=== PATIENT | male | born 1950 | race Caucasian/White ===

== ENCOUNTER 2018-08-09 12:08 | Outpatient (CLI) | payer MEDICARE | END 2018-08-09 12:09 | disposition critical access hospital (66) | LOC: EMS 12:08 | PROVIDERS: ATTEND Surgery | DX: R19.7 Diarrhea, unspecified (principal); R53.1 Weakness | CPT/HCPCS: A0425; A0429 ==

== ENCOUNTER 2018-08-09 12:20 | Inpatient (IN) | payer MEDICARE ==
--- NOTE | 2018-08-09 13:01 | ED Physician Documentation ---
PD HPI ABD PAIN - Stated complaint Stated Complaint: WEAKNESS, DIARRHEA, CONFUSED - Chief complaint Chief Complaint: Abd Pain - History obtained from History obtained from: Patient - History of Present Illness Timing - onset: Other (68yo male with sz d/o, DM with 3 days diarrhea, now weak with syncopal episodes. No blood in BM. Poor appetite. No abd pain, fevers, chills. No recent abx. State the syncopal episodes are following the diarrhea. He usually has the diarrhea and then goes and lays down in bed and either passes out or falls asleep. There is been no injury and he is never had one standing up. He denies any recent seizures, his last seizure was years ago.) Review of Systems Ten Systems: 10 systems reviewed and negative Constitutional: reports: Fatigue. denies: Fever, Chills Cardiac: denies: Chest pain / pressure, Palpitations Respiratory: denies: Dyspnea, Cough GI: reports: Diarrhea. denies: Abdominal Pain, Nausea, Vomiting PD PAST MEDICAL HISTORY - Past Medical History Cardiovascular: None Respiratory: None Neuro: Seizure disorder Endocrine/Autoimmune: None GI: None : None HEENT: None Psych: None Musculoskeletal: None Derm: None - Past Surgical History Past Surgical History: Yes General: Gastric surgery - Social History Does the pt smoke?: No Smoking Status: Never smoker Does the pt have substance abuse?: No - Family History Family history: reports: Non contributory PD ED PE NORMAL - Vitals Vital signs reviewed: Yes - General General: Alert and oriented X 3, No acute distress - HEENT HEENT: PERRL, EOMI - Neck Neck: Supple, no meningeal sign, No bony TTP - Cardiac Cardiac: RRR, No murmur - Respiratory Respiratory: No respiratory distress, Clear bilaterally - Abdomen Abdomen: Normal bowel sounds, Soft, Non tender - Back Back: No CVA TTP, No spinal TTP - Derm Derm: Normal color, Warm and dry - Extremities Extremities: No edema, No calf tenderness / cord - Neuro Neuro: Alert and oriented X 3, Normal speech Results - Vitals Vitals: Vital Signs - 24 hr 08/09/18 08/09/18 08/09/18 12:29 13:52 15:10 Temperature 36.2 C L Heart Rate 107 H 111 H 112 H Respiratory 21 12 21 Rate Blood Pressure 164/91 H 182/95 H 182/90 H O2 Saturation 99 99 99 06/28/19 06/28/19 16:14 16:49 Temperature 37 C Heart Rate 99 104 H Respiratory 16 21 Rate Blood Pressure 152/94 H 172/111 H O2 Saturation 98 97 Oxygen O2 Source Room air - EKG (time done) 1331 Rate: Rate (enter#) (101) Rhythm: Sinus tachycardia [place]: Normal Intervals: Normal MI QRS: Normal Ischemia: Non specific changes Compare to prior EKG: Old EKG unavailable Computer interpretation: Agree with computer - Labs Labs: Laboratory Tests 08/09/18 08/09/18 08/09/18 13:03 13:03 15:43 WBC 6.0 RBC 4.37 L Hgb 14.9 Hct 41.0 L MCV 93.8 MCH 34.1 H MCHC 36.3 H RDW 13.3 Plt Count 265 MPV 10.5 Neut # (Auto) 4.4 Lymph # (Auto) 0.8 L [place] # (Auto) 0.6 Eos # (Auto) 0.1 Baso # (Auto) 0.1 Absolute Nucleated RBC 0.00 Nucleated RBC % 0.0 VBG pH VBG pCO2 VBG pO2 VBG HCO3 VBG Total CO2 VBG O2 Saturation VBG Base Excess Sodium 132 L Potassium 2.7 L Chloride 98 L Carbon Dioxide 19 L Anion Gap 15.0 H BUN 16 Creatinine 1.0 Estimated GFR (MDRD) 75 L Glucose 147 H Lactic Acid 0.9 Calcium 9.7 Total Bilirubin 0.9 AST 41 ALT 35 Alkaline Phosphatase 72 Total Protein 7.3 Albumin 4.3 Globulin 3.0 Albumin/Globulin Ratio 1.4 Lipase 21 L Urine Color Urine Clarity Urine pH Ur Specific [place] Urine Protein Urine Glucose (UA) Urine Ketones Urine Occult Blood Urine Nitrite Urine Bilirubin Urine Urobilinogen Ur Leukocyte Esterase Ur Microscopic Review Urine Culture Comments 08/09/18 08/09/18 15:43 16:40 WBC RBC Hgb Hct MCV MCH MCHC RDW Plt Count MPV Neut # (Auto) Lymph # (Auto) [place] # (Auto) Eos # (Auto) Baso # (Auto) Absolute Nucleated RBC Nucleated RBC % VBG pH 7.406 VBG pCO2 30.9 L VBG pO2 49.9 H VBG HCO3 19.0 L VBG Total CO2 19.9 L VBG O2 Saturation 88.1 H VBG Base Excess -4.5 L Sodium Potassium Chloride Carbon Dioxide Anion Gap BUN Creatinine Estimated GFR (MDRD) Glucose Lactic Acid Calcium Total Bilirubin AST ALT Alkaline Phosphatase Total Protein Albumin Globulin Albumin/Globulin Ratio Lipase Urine Color YELLOW Urine Clarity CLEAR Urine pH 6.0 Ur Specific [place] 1.010 Urine Protein NEGATIVE Urine Glucose (UA) NEGATIVE Urine Ketones 15 H Urine Occult Blood NEGATIVE Urine Nitrite NEGATIVE Urine Bilirubin NEGATIVE Urine Urobilinogen 0.2 (NORMAL) Ur Leukocyte Esterase NEGATIVE Ur Microscopic Review NOT INDICATED Urine Culture Comments NOT INDICATED - Rads (name of study) CT A/P Radiology: EMP read contemporaneously (Possible cholecystitis noting that this does not fit the clinical picture which is that of diarrhea that is painless and weakness. There is no right upper quadrant pain or tenderness.) PD MEDICAL DECISION MAKING - ED course ED course: 68-year-old gentleman presents with diarrhea of a few days duration but is only had 4 episodes. Its associated with weakness and passing out. He denies any recent seizure activity and is very vague about the passing out. He was never injured and he says it always happens in bed, frankly it almost sounds like he goes to sleep after each episode of diarrhea. He doubts he will be able to produce any diarrhea here. He did not lacks any abdominal tenderness or fever. No recent antibiotics. No recent travel or sick contacts. He is modestly tachycardic and we are treating him with IV fluids. Lab work shows mild acidosis and moderate hypokalemia. He was given IV and oral potassium. After these treatments he was still too dizzy to get up or walk. He was administered a second liter of fluids and expanded lab work including a lactate and a venous gas and a CT of the abdomen and pelvis were ordered. Spoke with Dr Tovar for obs at 1744 Departure - Departure Disposition: ED Place in Observation Clinical Impression: Diarrhea Qualifiers: Diarrhea type: presumed infectious Qualified Code(s): R19.7 - Diarrhea, unspecified Syncope Qualifiers: Syncope type: unspecified Qualified Code(s): R55 - Syncope and collapse Condition: Fair Record reviewed to determine appropriate education?: Yes
[2018-08-09] MEDS ORDERED: SODIUM CHLORIDE 0.9% 1,000 ML IV ONE (13:04)
[2018-08-09 13:09] LABS: BASOPHILS # (AUTO) 0.1 10^3/uL (0.0-0.1); BASOPHILS % (AUTO) 0.8 %; EOSINOPHILS # (AUTO) 0.1 10^3/uL (0.0-0.7); EOSINOPHILS % (AUTO) 1.2 %; HGB - HEMOGLOBIN 14.9 g/dL (14.0-18.0); LYMPHOCYTES # (AUTO) 0.8 10^3/uL (1.5-3.5); LYMPHOCYTES % (AUTO) 13.1 %; MEAN CORPUSCULAR HEMOGLOBIN 34.1 pg (27.0-31.0); MEAN CORPUSCULAR HGB CONC 36.3 g/dL (32.0-36.0); MEAN CORPUSCULAR VOLUME 93.8 fL (80.0-94.0); MEAN PLATELET VOLUME 10.5 fL (7.4-11.4); MONOCYTES # (AUTO) 0.6 10^3/uL (0.0-1.0); MONOCYTES % (AUTO) 9.7 %; NEUTROPHILS # (AUTO) 4.4 10^3/uL (1.5-6.6); NEUTROPHILS % (AUTO) 74.7 %; PLT - PLATELET COUNT 265 10^3/uL (130-450); RED BLOOD COUNT 4.37 10^6/uL (4.70-6.10); RED CELL DISTRIBUTION WIDTH 13.3 % (12.0-15.0)
[2018-08-09 13:21] LABS: ALBUMIN 4.3 g/dL (3.2-5.5); ALBUMIN/GLOBULIN RATIO 1.4 (1.0-2.2); BILIRUBIN,TOTAL 0.9 mg/dL (0.2-1.0); CALCIUM 9.7 mg/dL (8.5-10.3); TOTAL PROTEIN 7.3 g/dL (6.7-8.2)
[2018-08-09] MEDS ORDERED: POTASSIUM CHLOR 10 MEQ/100 ML 10 MEQ/100 ML BAG IV ONE (13:27)
[2018-08-09] MEDS ORDERED: POTASSIUM CHLORIDE 20 MEQ TABLET PO STA (13:27)
[2018-08-09] MEDS ORDERED: LACTATED RINGERS 1,000 ML IV STA (15:16)
[2018-08-09] MEDS ORDERED: IOVERSOL 320 100 ML VIAL IVP ONE ×2 (15:32→16:05)
[2018-08-09 15:59] LABS: VBG PCO2 30.9 mmHg (41-51); VBG PH 7.406 (7.31-7.41); VBG PO2 49.9 mmHg (25-47); VBG TOTAL CO2 19.9 mmol/L (24-29)
[2018-08-09 16:00] LABS: VBG BASE EXCESS -4.5 mmol/L (-2 - +2)
--- NOTE | 2018-08-09 16:34 | CT Report ---
Reason: IV only, diarrhea Procedure Date: 08/09/2018 Accession Number: [id number] / [id number] Procedure: CT - Abdomen/Pelvis W CPT Code: FULL RESULT: EXAM: CT ABDOMEN AND PELVIS EXAM DATE: 08/09/2018 03:59 PM. CLINICAL HISTORY: IV only, diarrhea. COMPARISONS: None. TECHNIQUE: Routine helical CT imaging was performed through the abdomen and pelvis. IV contrast: 100 mL of Optiray 320. Enteric contrast: No. Reconstructions: Coronal and sagittal. In accordance with CT protocol optimization, one or more of the following dose reduction techniques were utilized for this exam: automated exposure control, adjustment of mA and/or KV based on patient size, or use of iterative reconstructive technique. FINDINGS: Lung Bases: Unremarkable. Liver: Normal. No masses. Gallbladder/Bile Ducts: Gallbladder contains calculi, demonstrates surrounding fat stranding and mild wall thickening. Spleen: Normal. Pancreas: Atrophic. Adrenal Glands: Normal. Kidneys: Symmetric mild perinephric fat stranding without hydronephrosis. Peritoneal Cavity/Bowel: The patient is status post partial colectomy. There is a bowel-containing ventral hernia. There is no bowel obstruction. There is no free fluid or free air. There are diffuse prominent peritoneal and retroperitoneal lymph nodes which do not meet size criteria. Pelvic Organs: Enlarged prostate lifting the base of the bladder. Vasculature: Mild to moderate atherosclerosis without abdominal aortic aneurysm. Bones: No aggressive osseous lesions. Other: None. IMPRESSION: Mild pericholecystic fat stranding and gallbladder wall thickening in the setting of cholelithiasis. If clinically indicated, consider workup for acute cholecystitis versus direct clinical management with information at hand. SORIN The call report notification system was initiated by Dr. Surinder Maldonado at 04:32 PM on 08/09/2018. ADDENDUM: 08/09/18 16:39 The above call report findings were discussed with Kin Teresa by Dr. Surinder Maldonado at 04:30 PM on 08/09/2018.
[2018-08-09 16:57] LABS: BILIRUBIN,URINE NEGATIVE (NEGATIVE); GLUCOSE, URINE (UA) NEGATIVE (NEGATIVE); KETONES,URINE (UA) 15 mg/dL (NEGATIVE); LEUKOCYTE ESTERASE, URINE NEGATIVE (NEGATIVE); NITRITE,URINE NEGATIVE (NEGATIVE); OCCULT BLOOD,URINE NEGATIVE (NEGATIVE); PROTEIN,URINE NEGATIVE (NEGATIVE); UROBILINOGEN,URINE 0.2 (NORMAL) E.U./dL (NORMAL)
[2018-08-09 17:05] LABS: CLARITY,URINE CLEAR (CLEAR)
[2018-08-09] MEDS ORDERED: ONDANSETRON 4 MG/2 ML VIAL IVP PRN (17:52)
[2018-08-09] MEDS ORDERED: SODIUM CHLORIDE FLUSH 0.9% 10 ML SYRINGE IVP PRN (17:52)
[2018-08-09] MEDS ORDERED: ONDANSETRON ODT 4 MG TABLET TL PRN (17:52)
[2018-08-09] MEDS: NS W/20 MEQ KCL 1,000 ML IV SCH (20:18)
[2018-08-09 20:38] LABS: MUDS CUTOFF CONCENTRATIONS CUTOFF CONC BELOW:
[2018-08-09 20:50] LABS: AMPHETAMINE SCREEN,URINE NEGATIVE (NEGATIVE); BENZODIAZEPINES SCREEN, URINE NEGATIVE (NEGATIVE); COCAINE SCREEN URINE NEGATIVE (NEGATIVE); METHADONE SCREEN, URINE NEGATIVE (NEGATIVE); METHAMPHETAMINES SCREEN, URINE NEGATIVE (NEGATIVE); OPIATE SCREEN, URINE NEGATIVE (NEGATIVE); OXYCODONE SCREEN, URINE NEGATIVE (NEGATIVE); PROPOXYPHENE SCREEN, URINE NEGATIVE (NEGATIVE); TRICYCLIC ANTIDEPRESSANT,URINE NEGATIVE (NEGATIVE)
[2018-08-09] MEDS: POTASSIUM CHLOR 10 MEQ/100 ML 10 MEQ/100 ML BAG IV SCH ×2 (22:25→22:50)
--- NOTE | 2018-08-09 22:57 | CT Report ---
Reason: syncope x 1 d, halluncination x 3 month Procedure Date: 08/09/2018 Accession Number: [id number] / [id number] Procedure: CT - HEAD WO CPT Code: FULL RESULT: EXAM: CT HEAD EXAM DATE: 08/09/2018 10:27 PM. CLINICAL HISTORY: Syncope x 1 d, hallucination x 3 month. COMPARISON: None. TECHNIQUE: Multiaxial CT images were obtained from the foramen magnum to the vertex. Reformats: Sagittal and coronal. IV contrast: None. In accordance with CT protocol optimization, one or more of the following dose reduction techniques were utilized for this exam: automated exposure control, adjustment of mA and/or KV based on patient size, or use of iterative reconstructive technique. FINDINGS: Parenchyma: No intraparenchymal hemorrhage. No evidence of mass, midline shift, or CT findings of infarction. Tomas-white differentiation is distinct. There is mild chronic microvascular change in the deep white matter. Extraaxial Spaces: Mild to moderate age-related generalized cerebral volume loss. No subdural or epidural collections identified. Ventricles: Normal. No hydrocephalus. Sinuses and Orbits: Imaged paranasal sinuses, orbits, and mastoids show no significant abnormality. Bones: No evidence of fracture or calvarial defect. Other: None. IMPRESSION: 1. No acute intracranial abnormality. 2. No intracranial mass lesion, mass-effect, or hydrocephalus. 3. Age-related generalized cerebral volume loss and chronic microvascular change. RADIA
--- NOTE | 2018-08-10 00:41 | HISTORY & PHYSICAL EXAMINATION ---
DATE OF SERVICE: 08/09/2018 Physician: Margarita Tovar MD PRIMARY CARE PROVIDER: Unknown at this time, the patient is a poor historian. ADMITTING PROVIDER: Margarita Tovar MD. CHIEF COMPLAINT: Syncope while lying in bed. HISTORY OF PRESENT ILLNESS: This gentleman is a poor historian. He has a flight of ideas, perseveration, and [place] so it is difficult to establish what his baseline is. He even states that he has changed over the last few months. He cannot put his finger on it, but he cannot think straight, and he is starting to confuse reality with hallucinations or dreams. He gives me an example of having a seizure disorder with a brain lesion. He thinks. Somehow, he feels like he is supposed to be getting infusions for this brain lesion and he gets up in the morning and he walks to the bus stop. While at the bus stop, he starts to realize that he should not be there and he really does not have an appointment, so he walked back home to his mother's house. He usually lives in [place], and he comes periodically to the [place] to live with his mother to help take care of her since she had a stroke. This has been ongoing for about five years of him taking care of her. The confusion of reality and hallucinations has been happening for about three or four months. He says he does not do any recreational substances. He also states that he drinks one drink of wine a day, but has not drunk in about three or four weeks. The glass of wine is described about 8 ounces of red wine from a dispenser that is shaped like a [email or web address] car, and that 8 ounces is filled with ice and he drinks that daily. In the last few days, he has developed diarrhea. It is not with a lot of frequency, but large amounts of watery stool will be produced. He does not recall any new foods. Denies that he has been eating out. His mom was found down today in the bathroom. She had been there overnight. He does not know how long she lay there, and he does not even remember if he heard her cry out. Nevertheless, when she was found this morning, EMS was called and she has been brought in for rhabdomyolysis, but she herself does not have diarrhea. He denies blood in his stool. Denies abdominal pain. Today, he started passing out. Passing out as he was lying in bed. He describes walking to the bathroom, coming back to the bed and by the time he gets to the bed, he is shaky, lightheaded and feels incredibly nauseated. Sometimes he is sitting at the side of the bed with these feelings and the next thing he knows he is waking up lying slumped over on the pillows. A couple of times he has actually been lying flat on the bed when he felt the nausea overcome him, and then unconsciousness and then "waking up." He presented to this emergency room with this history. He was seen by Dr. Teresa, where he was mildly hypothermic at 36.2, heart rate 107, blood pressure 164/91, respirations 21 and 99% on room air. His past medical history is that of intermittent diabetes, intermittently treated hypertension, and a duodenal bleed many years ago resulting in a long hospitalization with [facility] in [place]. Dr. Teresa's examination had him alert and oriented with no acute distress. Normal neurologic exam, clear lungs and a regular rate and rhythm. He was given IV fluids over the course of two hours, with oral potassium. With this, he was still too dizzy to get up and walk. Dr. Teresa then expanded his workup to include a lactic acid and a venous gas and CT abdomen and pelvis. He has right upper quadrant stranding indicating possible cholecystitis, but the patient has absolutely no right upper quadrant abdominal pain. His sodium is 132, potassium 2.7 and that has been supplemented. Lactic acid is 0.9. Anion gap is mildly elevated at 15. As such, the patient was brought in for possible dehydration with syncope secondary to diarrhea. PAST MEDICAL HISTORY: Past medical history, again, very difficult to obtain in this difficult historian, who cannot focus, and an answer to a question will result in a long winded explanation that has nothing to do with the questions asked. 1. Duodenal bleed resulting in hemorrhage, emergent surgery, and a prolonged hospitalization at a [facility] facility in [place]. 2. Diabetes mellitus "off and on." 3. Hypertension "off and on." 4. Appendectomy in the past. 5. History of esophageal strictures with subsequent dilations periodically. One dilation resulted in esophageal perforation and an emergency thoracotomy. 6. Seizure disorder with "a brain MRI lesion in the right side of his brain." 7. Unknown cognitive deficit. He denies history of mental illness or psychiatric disorder. ALLERGIES: NO KNOWN DRUG ALLERGIES. He states that there is a bottle or many bottles at home, left on the counter after EMS picked him up, but he is unaware of any medications that he takes. Ambulatory module filled by nursing in the ED is empty. SOCIAL HISTORY: He denies smoking. Never did. Alcohol use is an 8-ounce glass of wine a day, which he states he stopped three or four weeks ago for unknown reasons. He denies any use of heroin, cocaine, LSD, cannabis, methamphetamines. He has been and . 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 Started moving back and forth between [place] and [facility] in an effort to take care of his mom who had a stroke. FAMILY HISTORY 1. Dad is alive. He thinks he lives in [place], he is not sure, but he is not in contact with him. 2. Mom had a stroke and she is alive at 87. 3. Marielle is a sister and as far as he knows, she is healthy. 4. One son is healthy. REVIEW OF SYSTEMS GENERAL: Negative for unexpected weight changes, chills, fevers or sweats. HEENT: Severe cataracts, wears glasses for astigmatism, denies dysphagia, dysarthria,. Does have allergies, so he has quite a bit of nasal congestion at times and uses Afrin. PULMONARY: Denies coughing, wheezing, congestion, URI symptoms. CARDIOVASCULAR: Denies palpitations, murmurs, edema, orthopnea or change in cardiovascular endurance. GASTROINTESTINAL: Positive as above. He feels like he has been nauseated "forever." When I asked him to quantify that, he thinks back that he may be having daily nausea for unknown reasons for a few months now. He does not know if he has lost weight or not. GENITOURINARY: Nocturia, urgency, frequency, decreased stream, erectile dysfunction. JOINTS: Chronic low back pain. Hands and hips are stiff in the morning, but loosen up. He feels like his hands and feet are cold all the time. ENDOCRINE: Denies polyuria, polyphagia, polydipsia in hands and feet are cold all the time. PSYCHIATRIC: Denies history of previous psychiatric disorder. Seems to be endorsing hallucinations. Denies suicidal or homicidal ideation. 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 It is very hard for him to concentrate and to string together sentences and distinguish between reality and hallucinations. No focal deficits. No gait ataxia or falls. The syncope has only been today. PHYSICAL EXAMINATION VITAL SIGNS: On examination, he is seen in the emergency room. Temperature is 37, pulse of 104, blood pressure 172/111, respirations 21 and unlabored, and he is 97% on room air. GENERAL: He is lying comfortably in the ER gurney, alert, oriented to person, place and time. HEENT: Has him with muddy sclerae, pupils that are reactive, dry, dry oral mucosa. No facial asymmetry. Slightly hoarse voice. NECK: Supple with shotty adenopathy. No goiter or bruits. LUNGS: Clear to auscultation and percussion with no increased respiratory effort. HEART: PMI is normally placed with a heart thumping PMI and a regular rate and rhythm that is slightly tachycardic. No murmurs, rubs or gallops. ABDOMEN: Soft, nontender. Slightly hypoactive bowel sounds. No organomegaly. No femoral bruits. EXTREMITIES: Do show that he has very cold hands or feet, but there is no clubbing, cyanosis or edema. Good foot pulses and good radial pulse. NEUROLOGIC: He is alert and oriented to person, place and time. It is difficult for him to follow commands. For instance in checking extraocular movements and nystagmus, I have to repeat myself three times to finally get him to focus on my finger and allow me to do that part of the exam. Strength is intact in the upper and lower extremities; however, he is weak, can barely lift his legs off the bed. Reflex check induces clonus in the right knee and right ankle. Left leg is normal. At times, he has jerking movements, tremors of hands. Tongue is also with tremors as well. Cerebellar exam has some past pointing. LABORATORY DATA: White cell count is 6, hemoglobin 14.9, hematocrit 41, platelets 265. Sodium 132, potassium 2.7, chloride 98, carbon dioxide 19, anion gap 15, BUN 16, creatinine 1, glucose 147, lactic acid 0.9. Liver enzymes normal. Lipase 21. Venous blood gas is a pH of 7.4, pCO2 of 30, bicarbonate 19, base excess -4.5. Urinalysis is ketonuria, but is otherwise negative. ASSESSMENT/PLAN 1. Syncope. He seems to be describing orthostatic syncope in the face of someone who has been having diarrhea and decreased p.o. intake for the last few days. It is a very unusual description, and he also describes passing out in the supine position. On physical examination, I am not hearing any aortic stenosis murmur. Telemetry in the ER has him in a sinus rhythm that is tachycardic. There are no arrhythmias. He knows what a seizure disorder feels like and he says that these are not seizures. At this time, I am subscribing to the idea that this is orthostatic syncope from dehydration. PLAN: a. Observation status to hydrate and replace electrolytes. b. Attestation: The patient will be discharged within 96 hours. c. Monitor on telemetry for possible arrhythmia. 2. Diarrhea that appears to be secretory, acute. Send stool for Clostridium difficile and culture. Could he have alcohol abuse that he is not being upfront about and have diarrhea from alcohol abuse? In any case, it is causing significant electrolyte disturbance and dehydration and acidosis. We will treat with Lomotil p.r.n. and IV fluids. 3. Acute Dehydration with hyponatremia. Start IV normal saline. Encourage p.o. intake. Appears to have some type of enteritis or toxin induced diarrhea. 4. Acute Hypokalemia. Supplement IV since poor malabsorption at this time with his diarrhea. 5. Possible hallucinations,unknown duration, present on admission. When I put together a gentleman who is tremulous on physical exam, clonus, hypertensive, tachycardic, it appears to be that he is going through alcohol withdrawal, but he is adamant that he is not an alcohol abuser, and his MCV is normal with no anemia. CT of the abdomen was done and he does not have a fatty liver. As such, I may need to go beyond his diagnosis of possible alcohol abuse to something else to link together all of these symptomatologies. He is a poor historian, has cognitive deficits. Could he have a psychiatric disorder versus a new brain lesion? Could he be abusing a recreational substance other than alcohol? Plan: a. We will start brain CT tomorrow. b. Check for substance abuse through drug screen. c. Check alcohol level. d. See if he can improve enough tomorrow for me to get old records from his [facility] facility in [place]. 6. History of seizure disorder. Again, a vague history. He does not describe seizure medication. He says that sometimes they tell him that he has a seizure and sometimes not, but he also readily states that he imagines going to the bus stop to get infusions for this brain lesion causing seizures and then realizes that really did not happen. Again, we will try to obtain old records from [facility] tomorrow. 7. FULL CODE STATUS. 8. Deep venous thrombosis prophylaxis will be MARCUS bennett. 9. Medication Reconciliation needs to be completed. No record of meds done in the ER. I will have pharmacy per protocol attempt to do that in the am. TD: 08/09/2018 21:58 RINA
[2018-08-10] MEDS: POTASSIUM CHLOR 10 MEQ/100 ML 10 MEQ/100 ML BAG IV SCH ×5 (02:36→09:03)
[2018-08-10] MEDS: NS W/20 MEQ KCL 1,000 ML IV SCH (03:35)
[2018-08-10] MEDS: SODIUM CHLORIDE FLUSH 0.9% 10 ML SYRINGE IVP SCH ×3 (03:36→20:19)
[2018-08-10 04:45] LABS: ALBUMIN 3.7 g/dL (3.2-5.5); ALBUMIN/GLOBULIN RATIO 1.6 (1.0-2.2); CALCIUM 8.6 mg/dL (8.5-10.3); CREATININE 0.7 mg/dL (0.6-1.2)
[2018-08-10] MEDS: SODIUM CHLORIDE 0.9% 1,000 ML IV SCH ×3 (06:20→23:14)
[2018-08-10] MEDS: oxyCODONE 5 MG TABLET PO PRN ×3 (09:02→20:17)
[2018-08-10] MEDS: POLYETHYLENE GLYCOL 3350 17 GM PACKET PO SCH (09:03)
[2018-08-10] MEDS ORDERED: THIAMINE 100 MG TABLET PO SCH (11:00)
[2018-08-10] MEDS: MULTIVITAMIN TABLET PO SCH (12:50)
[2018-08-10] MEDS: METOPROLOL SUCCINATE 25 MG TABLET PO SCH (12:50)
[2018-08-10] MEDS ORDERED: THIAMINE INJ 100 MG in SODIUM CHLORIDE 0.9% 50 ML IV SCH (15:00)
--- NOTE | 2018-08-10 17:45 | PROVIDER PROGRESS NOTE ---
Progress Note Overnight he received IV fluids for hydration, and electrolyte repletion for his electrolyte derangement. Turning is only had one loose stool. And his electrolytes are now normal. He is now starting to share quite a bit more history with this. For instance he has been drinking since the age of 23. Went into rehab for a year, and was dry for 10 years but started drinking again at the age of 33 and has been steadily drinking since then. He no longer lives in [place]. He [place] lives with [place] When s he fell in the bathroom yesterday and he letter lay on the floor for a few hours, it stressed him out tremendously. So he drank more on top of his usual aggressive alcohol intake. He finally called EMS and was so stressed out he drank even more after that. This morning he is able to eat breakfast. But he is very, very unsteady on his feet and needs a 2 person assist to stand. He continues to have quite a bit of confabulation, and not quite clear or has no insight on his drinking. He says that he is drinking because he stressed out about taking care of his mother. Not because he is an alcoholic and is addicted to alcohol. Medication list reviewed and we have put him on Toprol for blood pressure, Tylenol, there grams vitamin, Zofran, Roxicodone, his normal saline. On physical examination temperature 36.8 pulse is 67 blood pressure 146/85 respirations 1800% on room air. We did orthostatics and supine his blood pressure was 157/77, sitting he was 152/85 and standing he was 138/84. Pulse went from 83-89 and then to 110 He is a thin alert white male who looks older than his stated age. The tremors, clonus of his leg, tremors of his tongue have resolved. The very dry tongue and lips have gone away. His lungs are clear with no increased respiratory effort. He has a regular rate and rhythm but will get tachycardic with standing. The abdomen is soft, nontender without a fluid wave. Extremities are thin, warm without edema. Assessment/plan 1. 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 He has history of hallucinations, is confabulating. Plan: High-dose thiamine which is 500 mg IV 3 times a day for 3 days. Then continue with 250 mg IM or IV once a day for 5 days. Change patient to inpatient status from observation 2. 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 Plan: Evaluated by physical therapy today and his ataxia is quite severe. He will need inpatient physical therapy. Reevaluate once his thiamine deficiency is treated. Consider him for rehab. 3. Alcohol abuse. History no changes. Initially he said he was drinking 8 ounces of alcohol a day then he changed it to drinking a 3 L box of wine a week. He also shared that he has been in inpatient rehab at the age of 23. Was dry for 10 years and has been steadily drinking since the age of 33. Unfortunately, he is responsible for taking care of his elderly mother who is had a stroke. He letter lay on the bathroom floor overnight. In response to his stress of this and having to call EMS he drank even further. I am asking social work to please send an APS referral. 4. Syncope that is most likely related to dehydration and diarrhea. Now resolved with IV fluids and supplementation of electrolytes 5. Diarrhea that is C. difficile negative, Campylobacter negative. For completeness sake will ask for ova and parasites. Diarrhea has now resolved. 6. Dehydration with hyponatremia resolved. Hypokalemia is also resolved. 7. He reports a seizure disorder. We can now leave that issue to rest and that he tells us he only has seizures in relation to alcohol withdrawal. He said about 6 in his life. But he does not have a true seizure disorder and he does not take seizure medications. 8. Hypertension. Start Metoprolol.
[2018-08-10] MEDS: THIAMINE INJ 500 MG in SODIUM CHLORIDE 0.9% 50 ML IV SCH (22:11)
[2018-08-11] MEDS: oxyCODONE 5 MG TABLET PO PRN ×5 (00:14→19:39)
[2018-08-11] MEDS: ACETAMINOPHEN 325 MG TABLET PO PRN (00:18)
[2018-08-11] MEDS: SODIUM CHLORIDE FLUSH 0.9% 10 ML SYRINGE IVP SCH ×3 (00:21→18:13)
[2018-08-11 05:02] LABS: ALBUMIN 3.5 g/dL (3.2-5.5); ALBUMIN/GLOBULIN RATIO 1.8 (1.0-2.2); BILIRUBIN,TOTAL 0.8 mg/dL (0.2-1.0); CALCIUM 8.1 mg/dL (8.5-10.3); CREATININE 0.7 mg/dL (0.6-1.2); TOTAL PROTEIN 5.5 g/dL (6.7-8.2)
[2018-08-11] MEDS: THIAMINE INJ 500 MG in SODIUM CHLORIDE 0.9% 50 ML IV SCH ×3 (05:47→22:53)
[2018-08-11] MEDS: METOPROLOL SUCCINATE 25 MG TABLET PO SCH (08:02)
[2018-08-11] MEDS: SODIUM CHLORIDE 0.9% 1,000 ML IV SCH ×2 (08:02→21:50)
[2018-08-11] MEDS: MULTIVITAMIN TABLET PO SCH (08:02)
[2018-08-11] MEDS: POLYETHYLENE GLYCOL 3350 17 GM PACKET PO SCH (08:15)
--- NOTE | 2018-08-11 09:22 | PROVIDER PROGRESS NOTE ---
<Gilson Simpson - Last Filed: 08/11/18 16:03> Subjective - Prog Note Date Prog Note Date: 08/11/18 Prog Note Time: 13:23 - Subjective Pt reports feeling: Improved (Mrs. Hampton is seen sitting up in bed eating his breakfast. Feeling overall better, but still feeling very weak and unable to ambulate by himself. Has not had any more bouts of diarrhea overnight. Developed a flat, pink, puritic rash on bilat LE below the knee to ankle. MARCUS hose were removed and skin cleaned, by afternoon rash was resolved. Motivated to work with physical therapy again today.) Current Medications - Current Medications Current Medications: Active Medications Acetaminophen (Tylenol) 650 mg PO Q4HR PRN PRN Reason: Pain 1 to 4 Last Admin: 08/11/18 00:18 Dose: 650 mg Sodium Chloride (Normal Saline 0.9%) 1,000 mls @ 125 mls/hr IV .Q8H [facility] Stop: 08/11/18 15:15 Last Admin: 08/11/18 08:02 Dose: 125 mls/hr Thiamine HCl 500 mg/ Sodium (Chloride) 55 mls @ 100 mls/hr IV TID [facility] Stop: 08/13/18 06:32 Last Infusion: 08/11/18 06:25 Dose: Infused Metoprolol Succinate (Toprol Xl) 25 mg PO DAILY [facility] Last Admin: 08/11/18 08:02 Dose: 25 mg Multivitamins (Theragran) 1 tab PO DAILYWM [facility] Last Admin: 08/11/18 08:02 Dose: 1 tab Ondansetron HCl (Zofran Inj) 4 mg IVP Q6HR PRN PRN Reason: Nausea / Vomiting Ondansetron HCl (Zofran Odt) 4 mg TL Q6HR PRN PRN Reason: Nausea / Vomiting Oxycodone HCl (Roxicodone) 5 mg PO Q4HR PRN PRN Reason: Pain 5 to 7 Last Admin: 08/11/18 08:03 Dose: 5 mg Polyethylene Glycol (Miralax) 17 gm PO DAILY [facility] Last Admin: 08/11/18 08:15 Dose: Not Given Sodium Chloride (Normal Saline Flush 0.9%) 10 ml IVP PRN PRN PRN Reason: NEEDED PER PROVIDER ORDERS Sodium Chloride (Normal Saline Flush 0.9%) 10 ml IVP 0100,0900,1700 [facility] Last Admin: 08/11/18 00:21 Dose: Not Given Acetaminophen [Tylenol Arthritis] 1,300 mg PO Q8H 08/10/18 Ginseng 200 mg PO BID 08/10/18 Iron,Carbonyl [Iron Chews] 15 mg PO TID 08/10/18 Loratadine [Claritin] 10 mg PO QPM 08/10/18 Melatonin/Pyridoxine [Melatonin 5 mg Tablet] 5 - 10 mg PO QPM 08/10/18 Lou's Wort 300 mg PO TID 08/10/18 diphenhydrAMINE [Benadryl] 50 mg PO TID 08/10/18 Objective - Vital Signs/Intake & Output Reviewed Vital Signs: Yes Vital Signs: Vital Signs x48h Temp Pulse Pulse Pulse Pulse Resp BP 08/11/18 07:51 100 100 69 08/11/18 07:35 36.6 C 69 19 134/93 H 08/11/18 03:15 36.5 C 68 20 158/84 H BP BP BP Pulse Ox 08/11/18 07:51 150/77 H 130/100 H 134/93 H 08/11/18 07:35 99 08/11/18 03:15 100 Intake & Output: Intake & Output 08/08/18 08/09/18 08/10/18 08/11/18 23:59 23:59 23:59 23:59 Intake Total 2151.667 5397.834 1608.333 Output Total 2075 1600 Balance 2151.667 3322.834 8.333 - Objective General Appearance: positive: No acute distress, Alert Eyes Bilateral: positive: Normal inspection, PERRL, EOMI ENT: positive: No signs of dehydration Neck: positive: Nml inspection, No JVD, Trachea midline. negative: Stiff neck, Carotid bruit, Swelling/bruising, Tracheal deviation Respiratory: positive: Chest non-tender, No respiratory distress, Breath sounds nml. negative: Wheezes, Rales, Rhonchi Cardiovascular: positive: Regular rate & rhythm, No murmur, No gallop. negat jhonny: JVD present, Systolic murmur, Diastolic murmur, Gallop/S3, Gallop/S4, Friction rub Abdomen: positive: Non-tender, Nml bowel sounds, No distention. negative: Tenderness, Guarding, Rebound, Hepatomegaly, Splenomegaly Back: positive: Nml inspection, Other (No CVA tenderness) Skin: positive: Color nml, Warm, Dry, Skin rash (flat, pink, puritic rash to bilat LE from ankle to knees-likely due to diaphoresis w/ MARCUS hose on. Take off TEDS, wash, allow to dry and reassess in afternoon) Extremities: positive: Non-tender, Nml appearance Neurologic/Psychiatric: positive: Oriented x3, CN's nml (2-12), Mood/affect nml, Weakness - Lab Results Fish Bones: 08/09/18 13:03 08/11/18 04:40 Other Labs: Lab Results x24hrs 08/11/18 Range/Units 04:40 Sodium 137 (135-145) mmol/L Potassium 3.6 (3.5-5.0) mmol/L Chloride 106 (101-111) mmol/L Carbon Dioxide 21 (21-32) mmol/L Anion Gap 10.0 (6-13) BUN 11 (6-20) mg/dL Creatinine 0.7 (0.6-1.2) mg/dL Estimated GFR (MDRD) 112 (>89) Glucose 97 (70-100) mg/dL Calcium 8.1 L (8.5-10.3) mg/dL Total Bilirubin 0.8 (0.2-1.0) mg/dL AST 49 H (10-42) IU/L ALT 30 (10-60) IU/L Alkaline Phosphatase 55 (42-121) IU/L Total Protein 5.5 L (6.7-8.2) g/dL Albumin 3.5 (3.2-5.5) g/dL Globulin 2.0 L (2.1-4.2) g/dL Albumin/Globulin Ratio 1.8 (1.0-2.2) ABX Reporting Has patient been on IV antibiotics over the past 48 hours?: No Assessment/Plan - Problem List (1) Wernicke encephalopathy Impression: Likely secondary to alcohol abuse and thiamine deficiency. He has a history of hallucinations and is confabulating. -High dose thiamine 500mg IV TID x3 days will be administered while patient remains inpatient -Then will need to continue with 250mg IM or IV once daily x5 days (2) Alcohol abuse Impression: Initially patient reported drinking 8oz of wine at night, to help with sleep. Over the course of his admission he has changes his story, reporting that he in fact drinks a 3L box of wine weekly. Was in inpatient rehab at the age of 23 and followed with AA meetings and sobriety for 10 years. At age 33, began drinking again and has been drinking a heavily steady amount since. -Acknowledges his alcohol use as a coping mechanism in response to stress of being caregiver to his elderly mother -accepting of the idea that alcohol contributed to his current medical state and is open to discussing alcohol treatment, however is adamant against the idea of AA -Social work involvement has been requested and to please send an APS referral in regards to patient's role as caregiver for his mother as this is not a safe situation (3) Cerebral ataxia Impression: Physical therapy eval reveals a quite severe ataxia with need for inpatient physical therapy. -Re-evaluate as thiamine deficiency is treated. -Consider for inpatient rehab (4) Syncope Impression: Most likely in setting of dehydration s/t diarrhea -Issue resolved with IVF and electrolyte repletion -Can stop IVF today as patient's PO intake is adequate Qualifiers: Syncope type: unspecified Qualified Code(s): R55 - Syncope and collapse (5) Diarrhea Impression: Likely in setting of ETOH, though cannot entirely rule out infectious processes -Cdif and campylobacter negative -Pending sample for ova and parasites, though unlikely at this point. 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 Now it is understood that patient has experienced a total of 6 lifetime seizures that occured over 2 hospitalized stays for either ETOH withdrawal or Xanax toxicity, it is unclear by the patient's report, however, it has been resolved that the patient does not have a true seizure disorder or epilepsy, and is not on any prescribed anticonvulsant therapy. -Continue to monitor for seizure activity in setting of Wernicke's Encephalopathy s/t ETOH withdrawal (8) Hypertension Impression: Likely in setting of ETOH withdrawal -Metoprolol XL 25mg daily started on 08/10/18 -Continue to monitor (9) Complex care coordination Impression: [place] has no established primary care, acknowledges that he has been "self-prescribing" with herbal and over the counter medications. -Case management consulted to help provide resources to patient -Discussed with patient need for follow up after this hospitalization and [place] <Margarita Tovar Ani - Last Filed: 08/11/18 16:29> Objective - Vital Signs/Intake & Output Vital Signs: Vital Signs x48h Temp Pulse Resp BP Pulse Ox 08/11/18 15:54 36.7 C 68 17 142/82 H 100 Intake & Output: Intake & Output 08/08/18 08/09/18 08/10/18 08/11/18 23:59 23:59 23:59 23:59 Intake Total 2151.667 5397.834 3103.333 Output Total 2074 2049 Balance 2151.667 3322.834 1053.333 - Objective Comments/Other: He has minimal tremor of the left hand when he holds it up. But overall the tremors, tongue tremors, dry mouth, right leg clonus of all resolved. Today he has tremors when he does cerebellar [id number] but is able to do it without passed pointing. Physical therapy reports moderate cerebellar ataxia. Diffuse generalized weakness. His exam is otherwise unremarkable. Lungs, cardiac, abdominal exam done. - Lab Results Fish Bones: 08/09/18 13:03 08/11/18 04:40 Other Labs: Lab Results x24hrs 08/11/18 Range/Units 04:40 Sodium 137 (135-145) mmol/L Potassium 3.6 (3.5-5.0) mmol/L Chloride 106 (101-111) mmol/L Carbon Dioxide 21 (21-32) mmol/L Anion Gap 10.0 (6-13) BUN 11 (6-20) mg/dL Creatinine 0.7 (0.6-1.2) mg/dL Estimated GFR (MDRD) 112 (>89) Glucose 97 (70-100) mg/dL Calcium 8.1 L (8.5-10.3) mg/dL Total Bilirubin 0.8 (0.2-1.0) mg/dL AST 49 H (10-42) IU/L ALT 30 (10-60) IU/L Alkaline Phosphatase 55 (42-121) IU/L Total Protein 5.5 L (6.7-8.2) g/dL Albumin 3.5 (3.2-5.5) g/dL Globulin 2.0 L (2.1-4.2) g/dL Albumin/Globulin Ratio 1.8 (1.0-2.2) ABX Reporting Has patient been on IV antibiotics over the past 48 hours?: No Assessment/Plan - Problem List (1) Wernicke encephalopathy Impression: He will be continued on high-dose thiamine therapy for 3 days. His encephalopathy pathic presentation is definitely improving. Still severely cerebellar ataxic. Continue to work with physical therapy and see if he will meet criteria for continued rehab in a halfway facility. (2) Dehydration with hyponatremia Impression: Since he is eating and drinking. Will stop IV fluids (3) Syncope Impression: Today's supine blood pressure is 134/93, sitting is 150/77, standing is 130/100. Pulse goes 69, 100, 100 respectively. [place] to be syncope from orthostatic changes from dehydration and alcoholic gastroenteritis. That is slowly getting better. Again we will be stopping IV fluids Qualifiers: Syncope type: unspecified Qualified Code(s): R55 - Syncope and collapse
[2018-08-11] MEDS ORDERED: KETOROLAC 30 MG/ML VIAL IVP PRN (22:08)
[2018-08-11] MEDS ORDERED: NALOXONE 0.4 MG/ML VIAL IVP PRN (22:10)
[2018-08-11] MEDS: CYCLOBENZAPRINE 10 MG TABLET PO PRN (22:53)
[2018-08-11] MEDS: LIDOCAINE PATCH 5% TOP SCH (22:53)
[2018-08-11] MEDS: PREGABALIN 25 MG CAPSULE PO SCH (22:54)
[2018-08-12] MEDS: SODIUM CHLORIDE FLUSH 0.9% 10 ML SYRINGE IVP SCH ×3 (00:10→16:35)
[2018-08-12] MEDS: oxyCODONE 5 MG TABLET PO PRN ×4 (00:17→20:29)
[2018-08-12] MEDS: THIAMINE INJ 500 MG in SODIUM CHLORIDE 0.9% 50 ML IV SCH ×3 (05:23→21:46)
[2018-08-12 05:57] LABS: ALBUMIN 3.2 g/dL (3.2-5.5); ALBUMIN/GLOBULIN RATIO 1.5 (1.0-2.2); BILIRUBIN,TOTAL 0.5 mg/dL (0.2-1.0); CALCIUM 8.3 mg/dL (8.5-10.3); CREATININE 0.6 mg/dL (0.6-1.2); TOTAL PROTEIN 5.4 g/dL (6.7-8.2)
[2018-08-12] MEDS ORDERED: POTASSIUM CHLORIDE 20 MEQ TABLET PO ONE (10:16)
--- NOTE | 2018-08-12 10:25 | PROVIDER PROGRESS NOTE ---
Subjective - Prog Note Date Prog Note Date: 08/12/18 Prog Note Time: 10:25 - Subjective Subjective: Eating his breakfast. Has no new complaints. Denies any chest pain, palpitations, shortness of breath. No abdominal pain. No diarrhea. Current Medications - Current Medications Current Medications: Active Medications Acetaminophen (Tylenol) 650 mg PO Q4HR PRN PRN Reason: Pain 1 to 4 Last Admin: 08/11/18 00:18 Dose: 650 mg Cyclobenzaprine HCl (Flexeril) 10 mg PO TID PRN PRN Reason: Spasms Last Admin: 08/11/18 22:53 Dose: 10 mg Thiamine HCl 500 mg/ Sodium (Chloride) 55 mls @ 100 mls/hr IV TID [facility] Stop: 08/13/18 06:32 Last Infusion: 08/12/18 06:36 Dose: Infused Ketorolac Tromethamine (Toradol Inj (30mg)) 30 mg IVP Q6HR PRN PRN Reason: PAIN Stop: 08/16/18 22:07 Last Admin: 08/11/18 22:54 Dose: 30 mg Lidocaine (Lidoderm Patch) 2 patch TOP DAILY [facility] Last Admin: 08/11/18 22:53 Dose: 2 patch Metoprolol Succinate (Toprol Xl) 25 mg PO DAILY [facility] Last Admin: 08/11/18 08:02 Dose: 25 mg Multivitamins (Theragran) 1 tab PO DAILYWM [facility] Last Admin: 08/11/18 08:02 Dose: 1 tab Naloxone HCl (Narcan) 1 mg IVP PRN PRN PRN Reason: Opiod OD Ondansetron HCl (Zofran Inj) 4 mg IVP Q6HR PRN PRN Reason: Nausea / Vomiting Ondansetron HCl (Zofran Odt) 4 mg TL Q6HR PRN PRN Reason: Nausea / Vomiting Oxycodone HCl (Roxicodone) 10 mg PO Q4HR PRN PRN Reason: Pain 5 to 7 Last Admin: 08/12/18 06:40 Dose: 10 mg Polyethylene Glycol (Miralax) 17 gm PO DAILY [facility] Last Admin: 08/11/18 08:15 Dose: Not Given Potassium Chloride (K-Dur) 40 meq PO ONCE ONE Stop: 08/12/18 10:17 Pregabalin (Lyrica) 25 mg PO BID [facility] Last Admin: 08/11/18 22:54 Dose: Not Given Sodium Chloride (Normal Saline Flush 0.9%) 10 ml IVP PRN PRN PRN Reason: NEEDED PER PROVIDER ORDERS Sodium Chloride (Normal Saline Flush 0.9%) 10 ml IVP 0100,0900,1700 [facility] Last Admin: 08/12/18 00:10 Dose: 10 ml Acetaminophen [Tylenol Arthritis] 1,300 mg PO Q8H 08/10/18 Ginseng 200 mg PO BID 08/10/18 Iron,Carbonyl [Iron Chews] 15 mg PO TID 08/10/18 Loratadine [Claritin] 10 mg PO QPM 08/10/18 Melatonin/Pyridoxine [Melatonin 5 mg Tablet] 5 - 10 mg PO QPM 08/10/18 Lou's Wort 300 mg PO TID 08/10/18 diphenhydrAMINE [Benadryl] 50 mg PO TID 08/10/18 Objective - Vital Signs/Intake & Output Reviewed Vital Signs: Yes Vital Signs: Vital Signs x48h Temp Pulse Resp BP Pulse Ox 08/12/18 08:01 36.5 C 63 16 137/73 H 95 Intake & Output: Intake & Output 08/09/18 08/10/18 08/11/18 08/12/18 23:59 23:59 23:59 23:59 Intake Total 2151.667 5397.834 4773.333 110 Output Total 2079 2350 1150 Balance 2151.667 3322.834 2423.333 -1040 - Objective General Appearance: positive: Alert Eyes Bilateral: positive: PERRL ENT: positive: Pharynx nml Neck: positive: No JVD. negative: Stiff neck, Carotid bruit Respiratory: positive: Chest non-tender. negative: Wheezes, Rales, Rhonchi Cardiovascular: positive: Regular rate & rhythm. negative: Gallop/S4, Friction rub Abdomen: positive: Non-tender, No organomegaly, Nml bowel sounds, No distention Skin: positive: Warm, Dry Extremities: positive: No pedal edema Neurologic/Psychiatric: positive: Oriented x3, CN's nml (2-12), Weakness (Generalized). negative: Motor nml (Still with ataxia. Needing 1-2 person assist when he gets up.) - Lab Results Fish Bones: 08/09/18 13:03 08/12/18 05:00 Other Labs: Lab Results x24hrs 08/12/18 Range/Units 05:00 Sodium 137 (135-145) mmol/L Potassium 3.3 L (3.5-5.0) mmol/L Chloride 103 (101-111) mmol/L Carbon Dioxide 24 (21-32) mmol/L Anion Gap 10.0 (6-13) BUN 11 (6-20) mg/dL Creatinine 0.6 (0.6-1.2) mg/dL Estimated GFR (MDRD) 134 (>89) Glucose 95 (70-100) mg/dL Calcium 8.3 L (8.5-10.3) mg/dL Total Bilirubin 0.5 (0.2-1.0) mg/dL AST 37 (10-42) IU/L ALT 25 (10-60) IU/L Alkaline Phosphatase 54 (42-121) IU/L Total Protein 5.4 L (6.7-8.2) g/dL Albumin 3.2 (3.2-5.5) g/dL Globulin 2.2 (2.1-4.2) g/dL Albumin/Globulin Ratio 1.5 (1.0-2.2) ABX Reporting Has patient been on IV antibiotics over the past 48 hours?: No Assessment/Plan - Problem List (1) Wernicke encephalopathy Impression: Likely secondary to alcohol abuse and thiamine deficiency. He has a history of hallucinations and is confabulating. -High dose thiamine 500mg IV TID x3 days will be administered while patient remains inpatient. Last dose is tomorrow morning. -Then will need to continue with 250mg IM or IV once daily x5 days (2) Alcohol abuse Impression: Initially patient reported drinking 8oz of wine at night, to help with sleep. Over the course of his admission he has changes his story, reporting that he in fact drinks a 3L box of wine weekly. Was in inpatient rehab at the age of 23 and followed with AA meetings and sobriety for 10 years. At age 33, began drinking again and has been drinking a heavily steady amount since. -Acknowledges his alcohol use as a coping mechanism in response to stress of being caregiver to his elderly mother -accepting of the idea that alcohol contributed to his current medical state and is open to discussing alcohol treatment, however is adamant against the idea of AA -Social work involvement has been requested and to please send an APS referral in regards to patient's role as caregiver for his mother as this is not a safe situation (3) Cerebral ataxia Impression: Physical therapy eval reveals a quite severe ataxia with need for inpatient physical therapy. -Re-evaluate as thiamine deficiency is treated. -Consider for inpatient rehab (4) Syncope Impression: Most likely in setting of dehydration s/t diarrhea -Issue resolved with IVF and electrolyte repletion -stopped IVF 08/11 as patient's PO intake is adequate Qualifiers: Syncope type: unspecified Qualified Code(s): R55 - Syncope and collapse (5) Diarrhea Impression: Likely in setting of ETOH, though cannot entirely rule out infectious processes -Cdif and campylobacter negative -Pending sample for ova and parasites, though unlikely at this point. 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 Now it is understood that patient has experienced a total of 6 lifetime seizures that occured over 2 hospitalized stays for either ETOH withdrawal or Xanax toxicity, it is unclear by the patient's report, however, it has been resolved that the patient does not have a true seizure disorder or epilepsy, and is not on any prescribed anticonvulsant therapy. -Continue to monitor for seizure activity in setting of Wernicke's Encephalopathy s/t ETOH withdrawal (8) Hypertension Impression: Likely in setting of ETOH withdrawal -Metoprolol XL 25mg daily started on 08/10/18 -Continue to monitor. Today 130's systolic w a pulse of 60. No change for now. (9) Complex care coordination Impression: [place] and has no established primary care, acknowledges that he has been "self-prescribing" with herbal and over the counter medications. -Case management consulted to help provide resources to patient -Discussed with patient need for follow up after this hospitalization and [place] (10) Hypokalemia Plan: po supplementation (3) Syncope Qualifiers: Qualified Code(s): R55 - Syncope and collapse
[2018-08-12] MEDS: PREGABALIN 25 MG CAPSULE PO SCH ×2 (10:32→20:29)
[2018-08-12] MEDS: MULTIVITAMIN TABLET PO SCH (10:32)
[2018-08-12] MEDS: METOPROLOL SUCCINATE 25 MG TABLET PO SCH (10:32)
[2018-08-12] MEDS: POLYETHYLENE GLYCOL 3350 17 GM PACKET PO SCH (10:32)
[2018-08-12] MEDS: LIDOCAINE PATCH 5% TOP SCH (10:33)
[2018-08-12] MEDS: CYCLOBENZAPRINE 10 MG TABLET PO PRN (23:48)
[2018-08-13] MEDS: oxyCODONE 5 MG TABLET PO PRN ×3 (00:42→13:06)
[2018-08-13] MEDS: THIAMINE INJ 500 MG in SODIUM CHLORIDE 0.9% 50 ML IV SCH (06:48)
[2018-08-13] MEDS: SODIUM CHLORIDE FLUSH 0.9% 10 ML SYRINGE IVP SCH ×2 (06:48→08:59)
[2018-08-13 07:28] VITALS: BP 141/82
[2018-08-13] MEDS: POLYETHYLENE GLYCOL 3350 17 GM PACKET PO SCH (08:59)
[2018-08-13] MEDS: LIDOCAINE PATCH 5% TOP SCH (08:59)
[2018-08-13] MEDS ORDERED: SENNA 8.6 MG TABLET PO SCH (09:00)
[2018-08-13] MEDS: PREGABALIN 25 MG CAPSULE PO SCH (09:00)
[2018-08-13] MEDS ORDERED: DOCUSATE SODIUM 250 MG CAPSULE PO SCH (09:00)
[2018-08-13] MEDS: ACETAMINOPHEN 325 MG TABLET PO PRN ×2 (09:01→13:06)
[2018-08-13] MEDS: MULTIVITAMIN TABLET PO SCH (09:02)
[2018-08-13] MEDS: METOPROLOL SUCCINATE 25 MG TABLET PO SCH (09:02)
--- NOTE | 2018-08-13 10:42 | Discharge Plan ---
"Discharge Plan for SNF / [facility] - Discharge Plan And Transition Orders Problem Reviewed?: Yes Disposition: 03 SNF DC/Xfer Condition: Stable Allergies and Adverse Reactions: Allergies Allergy/AdvReac Type Severity Reaction Status Date / Time No Known Drug Allergies Allergy Verified 08/09/18 19:58 Health Concerns: Syncope (fainting), diarrhea, dehydration, hypokalemia (low potassium level). Alcohol abuse causing memory trouble (Wernicke's encephalopathy) and abnormal gait (cerebral ataxia). Pain and muscle spasms. Hypertension. Seizure disorder history. Plan of Treatment: Get Physical Therapy and Occupational Therapy rehab for the abnormal gait. Stop alcohol intake and begin oral Thiamine supplements. Follow-up with your PCP after discharge from the rehab facility. Care Goals: See your PCP after discharge from the rehab facility. Be compliant with staying off alcohol and taking the medications prescribed. Assessment: The patient agrees to this plan of care. - SNF / [facility] Transition Orders Admit to (Facility): [facility] Discharge Diagnosis: 1) Syncope 2) Diarrhea 3) Dehydration 4) Alcohol abuse 5) Wernicke's encephalopathy 6) Cerebral ataxia 7) Seizure disorder 8) HTN 9) Hypokalemia 10) Arthritis 11) Code Status: Full Code Medicare Certification Statement: I certify that Post Hospital care home care is medically necessary on a continuing basis for any of the conditions for which she/he is receiving care during hospitalization. Notify PCP of admission and forward orders to primary provider for signature. Weight on admission and: Weekly Call PCP immediately if weight increases by: 10 kg Other Notification Orders: Call PCP immediately if patient develops dyspnea, chest pain/tightness or edema. House Bowel Program: Yes Additional Bowel Program Orders: If no BM after 2 days, nurse may give M.O.M. 30ml PO PRN and/or ducolax Supp 1 AK and/or ALCIDES 250mg P.O., and/or senna 1-2 tabs PO. On day 3 nurse may give repeat above order until residents constipation is resolved. Annual Influenza Vaccine (between Oct 13 and May 12): Yes Two-step PPD per [facility] [id number] or approved exception documents: Yes Oxygen Orders: None Lab Tests or X-ray Orders: BMP and Mg every Fri Medication Orders: PLEASE REFER TO THE DISCHARGE MEDICATION LIST. Insulin Orders?: No - Medications New Prescriptions: oxyCODONE [Roxicodone] 10 mg PO Q4HR PRN #10 tablet PRN Reason: Pain 5 to 7 Acetaminophen [Tylenol Arthritis] 650 mg PO Q8H PRN #30 tablet.er PRN Reason: Mild Pain Cyclobenzaprine [Flexeril] 10 mg PO TID PRN #90 tablet PRN Reason: Spasms Lidocaine Patch 5% [Lidoderm Patch] 2 patch TOP DAILY #30 patch Metoprolol Succinate [Toprol Xl] 25 mg PO DAILY #30 tablet Multivitamin [Theragran] 1 tab PO DAILYWM #30 tablet Potassium Chloride [K-Dur] 20 meq PO DAILYWM #30 tablet Pregabalin [Lyrica] 25 mg PO BID #60 capsule Thiamine [Vitamin B-1] 100 mg PO DAILY #30 tablet Thiamine HCl [Vitamin B-1] 250 mg PO DAILY 4 Days #4 tablet - Diet Type: No added salt Texture: Regular Liquids: Thin - Therapies | Activity Therapy: Evaluation | Treat if indicated: PT, OT Rehabilitation Potential: Maximize functional status Weight Bearing: Full Weight"
[2018-08-13] MEDS ORDERED: POTASSIUM CHLORIDE 20 MEQ TABLET PO ONE (10:46)
[2018-08-13] MEDS ORDERED: THIAMINE 100 MG/1 ML 2 ML MDV IM SCH (10:47)
[2018-08-14] MEDS ORDERED: POTASSIUM CHLORIDE 20 MEQ TABLET PO SCH (08:00)
--- NOTE | 2018-08-17 19:36 | DISCHARGE SUMMARY ---
Discharge Summary Admit Date: 08/09/18 Discharge Date: 08/13/18 Discharging Provider: Dr June Cardoza Primary Care Provider: None Code Status: Attempt Resuscitation Condition at Discharge: Stable Discharge Disposition: 03 SNF DC/Xfer Discharge Facility Name: [facility] in [place], [place] - DIAGNOSES Admission Diagnoses: 1) Syncope 2) Diarrhea 3) Alcohol abuse 3) HTN Discharge Diagnoses with Status of Each Condition: See each below in Hospital course - HPI History of Present Illness: This is a 68-year-old male with history of alcohol abuse, possible seizure disorder, hypertension, possible diabetes, hypertension, duodenal GI bleed many years ago resulting in a long hospitalization with [facility] in [place]. Patient is currently moving to [facility] from [place], he is living with his mother and helping her after her stroke. He has no PCP yet. Patient presents to the emergency room with confusion (describes "hallucinations and suddenly not knowing where he is" for the past 5 years. He denied any illicit drug use and stated he was a daily wine drinker. Several days before presenting to the ER he developed diarrhea, intermittent confusion, did not realize that his mother had fallen and did not hear her cry. Then when he "woke up" he called EMS (and she was brought in with rhabdomyolysis). He continued to have diarrhea and describes "passing out even with lying in bed". He had shakiness, lightheadedness and nausea and eventually came to the ER. He was found to have a heart rate of 107, blood pressure 164/91, 99% oxygen saturation on room air. He received IV fluids and oral potassium was replaced. He was still too dizzy to walk and was admitted initially due to dehydration and orthostasis into Observation status. His symptoms continued and he was made a full inpatient. - HOSPITAL COURSE Hospital Course: 1) Syncope. This was felt to be due to dehydration from the diarrhea and alcohol abuse. He was hydrated, monitored for alcohol withdrawal, orthostatic vital signs were checked. 2) Diarrhea. It was felt to be secretory diarrhea related to his alcohol use, but could not entirely rule out infectious processes. His C.dif and campylobacter studies were negative. The sample was pending for ova and parasites. The diarrhea decreased while here 3) Dehydration. He was rehydrated with IV fluids, electrolytes replaced. On the following day his diet was started and was then advanced and he tolerated this. 4) Alcohol abuse. Initially patient reported drinking 8oz of wine at night "to help with sleep". Over the course of his admission he had changes in his story, reporting that he in fact drinks a 3L box of wine weekly. Was in inpatient rehab at the age of 23 and followed with AA meetings and sobriety for 10 years. At age 33, began drinking again and has been drinking a heavily steady amount since. He acknowledged his alcohol use as a coping mechanism in response to stress of being caregiver to his elderly mother. Social work involvement was requested and to send an APS referral in regards to patient's role as caregiver for his mother as this is not a safe situation. 5) Wernicke's encephalopathy. Likely secondary to alcohol abuse and thiamine deficiency. He has a history of hallucinations and is confabulating. He was treated with high dose thiamine 500mg IV TID x3 days. Then will continue with 250mg IM or IV once daily x5 days. This was ordered to be continued at the SNF. 6) Cerebral ataxia. Physical therapy evaluation revealed a quite severe ataxia with need for inpatient physical therapy. He was accepted to SNF for PT rehab. This may improve as his Thiamine is replaced. 7) Seizure disorder. Self-reported by patient at time of admission. Then it was understood that patient has experienced a total of 6 lifetime seizures that occurred over 2 hospitalized stays for either ETOH withdrawal or Xanax toxicity, it is unclear by the patient's report, however, it has been resolved that the patient does not have a true seizure disorder or epilepsy, and is not on any prescribed anticonvulsant therapy. He was monitored for seizure activity in the setting of Wernicke's Encephalopathy or from alcohol withdrawal and there were none while here. 8) HTN. This was felt to be in the setting of alcohol withdrawal. He was on Metoprolol XL 25mg daily started on 08/10/18 9) Hypokalemia. This was related to electrolyte loss from vomiting and diarrhea. Electrolytes were replaced. He was discharged on daily Potassium. 10) Arthritis. He had this complaint on his final day. He was treated with Tylenol Arthritis and Flexeril. He also was prescribed several tablets of Roxicodone. - ALLERGIES Allergies/Adverse Reactions: Allergies Allergy/AdvReac Type Severity Reaction Status Date / Time No Known Drug Allergies Allergy Verified 08/09/18 19:58 - MEDICATIONS Home Medications: Ambulatory Orders Medication Instructions Recorded Confirmed Acetaminophen [Tylenol Arthritis] 650 mg PO Q8H PRN #30 tablet.er 08/13/18 Cyclobenzaprine [Flexeril] 10 mg PO TID PRN #90 tablet 08/13/18 Lidocaine Patch 5% [Lidoderm Patch] 2 patch TOP DAILY #30 patch 08/13/18 Metoprolol Succinate [Toprol Xl] 25 mg PO DAILY #30 tablet 08/13/18 Multivitamin [Theragran] 1 tab PO DAILYWM #30 tablet 08/13/18 Potassium Chloride [K-Dur] 20 meq PO DAILYWM #30 tablet 08/13/18 Pregabalin [Lyrica] 25 mg PO BID #60 capsule 08/13/18 Thiamine HCl [Vitamin B-1] 250 mg PO DAILY 4 Days #4 tablet 08/13/18 Thiamine [Vitamin B-1] 100 mg PO DAILY #30 tablet 08/13/18 oxyCODONE [Roxicodone] 10 mg PO Q4HR PRN #10 tablet 08/13/18 - PHYSICAL EXAM AT DISCHARGE General Appearance: positive: No acute distress Eyes Bilateral: positive: Normal inspection ENT: positive: No signs of dehydration Neck: positive: Nml inspection Respiratory: positive: No respiratory distress Cardiovascular: positive: Regular rate & rhythm Abdomen: positive: Non-tender Extremities: positive: No pedal edema - LABS Result Diagrams: 08/09/18 13:03 08/12/18 05:00 - DIAGNOSTIC IMAGING Diagnostic Imaging Results: Final report reviewed - FOLLOW UP Follow Up: Patient was given material by social work in order to establish with a PCP, after his discharge from [facility]
== END 2018-08-13 14:21 | DRG 641 ==
LOC: ED 12:20 → MS3 17:52 → INTOOBSV 08-10 14:08 → OBSVTOIN 08-10 14:08 → UNDODISIN 08-13 14:21
PROVIDERS: ADMIT Specialist; ATTEND Internal Medicine
DX: E51.2 Wernicke's encephalopathy (principal); E87.1 Hypo-osmolality and hyponatremia; F10.188 Alcohol abuse with other alcohol-induced disorder; R19.7 Diarrhea, unspecified; G31.2 Degeneration of nervous system due to alcohol; E87.2 Acidosis; R42 Dizziness and giddiness; R11.0 Nausea; E11.9 Type 2 diabetes mellitus without complications; R55 Syncope and collapse; E86.0 Dehydration; Z86.69 Personal history of other diseases of the nervous system and sense organs; E87.6 Hypokalemia; I15.8 Other secondary hypertension; R21 Rash and other nonspecific skin eruption; M19.90 Unspecified osteoarthritis, unspecified site; Z79.899 Other long term (current) drug therapy; Z63.6 Dependent relative needing care at home; Z87.19 Personal history of other diseases of the digestive system
CPT/HCPCS: 36415; 70450; 74177; 80053; 81003; 82803; 83605; 83690; 85025; 87045; 87046; 87493; 93005; 96361; 96365; 96366; 97116; 97162; 97530; 99284; 99285; A9270; G0378; J3411; J7040; J7120; Q9967; 80306; 80320; 81001; 87086

== ENCOUNTER 2022-04-04 11:06 | Outpatient (CLI) | payer MEDICARE | END 2022-04-04 23:59 | disposition critical access hospital (66) | LOC: EMS 11:06 | DX: R42 Dizziness and giddiness (principal); I95.1 Orthostatic hypotension; R53.1 Weakness | CPT/HCPCS: A0425; A0427 ==

== ENCOUNTER 2022-04-04 11:19 | Inpatient (IN) | payer MEDICARE ==
--- NOTE | 2022-04-04 11:59 | ED Physician Documentation ---
PD HPI SYNCOPE - Stated complaint Stated Complaint: SYNCOPE/FALL - Chief complaint Chief Complaint: Neuro - History obtained from History obtained from: Patient - History of Present Illness Witnessed: Unwitnessed Timing - onset: Enter time (0200) Duration: Minutes Preceding symptoms: Light headed, Generalized weakness Associated symptoms: No: Seizure, Incontinant of urine, Incontinant of stool, Headache, Vision changes, Chest pain, Palpitations, Diaphoresis, Dyspnea, Nausea / vomiting, Abdominal pain, Unknown Contributing factors: Decreased PO intake Injury occurred: Fell, Unknown Treatment WEIGHER AND GRADER: Fluids (500ml given en-route) Similar symptoms before: Has not had sx before Recently seen: Not recently seen - Additional information Additional information: Previously well Alek Hampton Jr., was in his home last night when he went to get out of bed to go to the bathroom he felt weak and lightheaded and had a syncopal episode and a fall. He is not certain that he hurt himself he denies any pain in his neck he denies any headache he thinks he has a bruise to the left side of his scalp. He indicates that over the past 3 to 4 days he has been having some difficulty with lightheadedness and dizziness and having more difficulty getting around. He denies any specific unilateral weakness. He lives alone and usually drinks water and wine. He drinks wine out of a box. He drinks daily. He has not been in to see the doctor in more than 3 years since the pandemic. He did not get immunized. Review of Systems Constitutional: reports: Fatigue. denies: Fever Ears: denies: Ear pain Nose: denies: Rhinorrhea / runny nose, Congestion Throat: denies: Sore throat Cardiac: denies: Chest pain / pressure, Palpitations Respiratory: denies: Dyspnea, Cough GI: denies: Abdominal Pain, Nausea, Vomiting, Constipation, Diarrhea : denies: Dysuria, Frequency Skin: denies: Rash Musculoskeletal: denies: Neck pain, Back pain, Extremity pain Neurologic: reports: Generalized weakness, Syncope, Head injury. denies: Focal weakness, Numbness, Difficulty speaking, Headache PD PAST MEDICAL HISTORY - Past Medical History Cardiovascular: None Respiratory: None Neuro: Seizure disorder Endocrine/Autoimmune: None GI: None : None HEENT: None Psych: None, Other Musculoskeletal: None Derm: None - Past Surgical History Past Surgical History: Yes General: Gastric surgery - Present Medications Home Medications: Ambulatory Orders Medication Instructions Recorded Confirmed No Known Home Medications 04/04/22 04/04/22 - Allergies Allergies/Adverse Reactions: Allergies Allergy/AdvReac Type Severity Reaction Status Date / Time No Known Drug Allergies Allergy Verified 04/04/22 11:34 - Social History Does the pt smoke?: No Smoking Status: Never smoker Does the pt have substance abuse?: No PD ED PE NORMAL - Vitals Vital signs reviewed: Yes (systolic hypotension) - General General: No acute distress, Well developed/nourished, Other (1-2 second speech latency and 1-3 delay in execution of motor commands .) - HEENT HEENT: PERRL, EOMI, Other (bruise above the left eye in the forehead is circular about 1cm and no significant tenderness ) - Neck Neck: Supple, no meningeal sign, No bony TTP - Cardiac Cardiac: RRR, No murmur - Respiratory Respiratory: No respiratory distress, Clear bilaterally - Abdomen Abdomen: Normal bowel sounds, Soft, Non tender, Non distended, No organomegaly - Back Back: No CVA TTP, No spinal TTP - Derm Derm: Normal color, Warm and dry, No rash, Other (tenting skin ) - Extremities Extremities: No deformity, No edema - Neuro Neuro: Alert and oriented X 3, ic engineer 2-12 intact, No motor deficit, No sensory deficit, Normal speech Eye Opening: Spontaneous Motor: Obeys Commands Verbal: Oriented GCS Score: 15 - Psych Psych: Normal mood, Normal affect Results - Vitals Vitals: Vital Signs - 24 hr 04/04/22 04/04/22 04/04/22 11:34 11:41 12:12 Temperature 36.8 C Heart Rate 80 86 85 Respiratory 18 20 16 Rate Blood Pressure 99/85 H 115/60 125/78 O2 Saturation 99 97 97 04/04/22 04/04/22 04/04/22 13:09 14:03 14:30 Temperature Heart Rate 80 77 82 Respiratory 14 18 19 Rate Blood Pressure 116/59 L 126/61 126/61 O2 Saturation 97 100 97 Oxygen O2 Source Room air - EKG (time done) 1132 Rate: Rate (enter#) (82) Rhythm: NSR Intervals: Prolonged QT QRS: LVH Compare to prior EKG: Changed from prior EKG (SPT 08-09-2018 the rate has slowed and the prior lateral T-wave flattening has resovled. ) Computer interpretation: Agree with computer - Labs Labs: Laboratory Tests 04/04/22 04/04/22 04/04/22 11:46 11:46 11:46 WBC 12.4 H RBC 3.81 L Hgb 13.0 L Hct 34.9 L MCV 91.6 MCH 34.1 H MCHC 37.2 H RDW 11.3 L Plt Count 222 MPV 10.3 Neut # (Auto) 10.4 H Lymph # (Auto) 0.6 L [place] # (Auto) 1.1 H Eos # (Auto) 0.0 Baso # (Auto) 0.0 Absolute Nucleated RBC 0.00 Nucleated RBC % 0.0 Manual Slide Review Indicated Platelet Estimate NORMAL (130-450,000) Platelet Morphology NORMAL APPEARANCE RBC Morph Micro Appear NORMAL APPEARANCE Sodium 116 L* Potassium 3.2 L Chloride 76 L* Carbon Dioxide 25 Anion Gap 15.0 H BUN 40 H Creatinine 2.5 H Estimated GFR (MDRD) 26 L Glucose 173 H Calcium 9.0 Magnesium Total Bilirubin 1.0 AST 191 H ALT 102 H Alkaline Phosphatase 57 Troponin I High Sens 25.3 H* Total Protein 6.1 L Albumin 3.6 Globulin 2.5 Albumin/Globulin Ratio 1.4 Lipase 34 Ethyl Alcohol 04/04/22 04/04/22 04/04/22 11:46 14:07 14:07 WBC RBC Hgb Hct MCV MCH MCHC RDW Plt Count MPV Neut # (Auto) Lymph # (Auto) [place] # (Auto) Eos # (Auto) Baso # (Auto) Absolute Nucleated RBC Nucleated RBC % Manual Slide Review Platelet Estimate Platelet Morphology RBC Morph Micro Appear Sodium 118 L* Potassium 3.0 L Chloride 81 L Carbon Dioxide 25 Anion Gap 12.0 BUN 43 H Creatinine 2.3 H Estimated GFR (MDRD) 28 L Glucose 115 H Calcium 8.2 L Magnesium 2.5 Total Bilirubin AST ALT Alkaline Phosphatase Troponin I High Sens Total Protein Albumin Globulin Albumin/Globulin Ratio Lipase Ethyl Alcohol < 5.0 - Rads (name of study) head CT Radiology: Prelim report reviewed (Impression: Stable atrophy, chronic ischemic change and old right thalamic lacunar infarct), EMP read indepedently, See rad report Procedures - IVC sono (time) 1214 Bedside IVC sono: IVC measures (cm) (0.77), IVC collapsed c insp (cm) (complete), Significant dehydration (est 2+ liter deficit after 500ml given.) PD Medical Decision Making - ED course Complexity details: reviewed old records, reviewed results, re-evaluated patient, considered differential, d/w patient Reviewed Lab Results: We reviewed a complete blood count showing an elevated white blood cell count of 12.4 and low hemoglobin and hematocrit of 13 and 34.9. The patient's usual are 14.9 and 41. Platelets are adequate we reviewed chemistries showing a critically low serum sodium of 116 with a potassium of 3.2 and a chloride of 76. We found the BUN to be markedly elevated at 40 and creatinine of 2.5 both of these values are markedly abnormal for the patient his last BUN was 11 and 08/12/2018. His creatinine was last 0.6 on 08/12/2018. Glucose is elevated at 173 correction for the serum sodium moves it to 118. AST and ALT are mildly elevated at sensitive troponin mildly elevated as well. Toxicology report shows of ethyl alcohol less than 5 ED course: 71-year-old male with a history of alcohol use has had a syncopal episode in his home last night, is found to be profoundly dehydrated and has serum sodium of 116. He is initially treated in the emergency department with a liter bolus of a banana bag after being after having received 500 mL in the field. He did have a fall. A CT scan of his head was negative for acute bleed and showed signs of aging. He has no alcohol today. He is mildly confused. By problems: 1. hyponatremia: a critically low sodium of 116 with volume depletion. We are hydrating with saline and slowly improving the serum sodium. We will have to complete the work up with a urine sodium at the time of admission the urine is pending. 2. dehydration: The patient's level of dehydration is significant enough to cause his presenting symptom of syncope and fall. He was hypotensive prior to arrival and his blood pressure improved with IV saline. His level of dehydration is profound with an IVC diameter 7.1mm (15-25mm normal ) and this is after administration of 500ml saline given in the field. His deficit is estimated at 3 Liters. 3. Syncope and fall: The patient fell while ambulating to the bathroom and has no good memory of the event. He appears only minimally injured with a bruise to the forehead and negative CT head. The syncope is presumed to be related to the dehydration. We did monitor the patient and found no obvious arrhythmia. His trop is slightly above normal but not unexpected given the acute kidney injury. 4. Acute kidney injury: BUN40 Cr 2.5 are off from the patients normal 11/0.9. This is likely customer assistance representative of the level of dehydration and suggest several days of significant dehydration to cause this with Cr. only able to go up by 1 point daily with complete renal failure. The expectation is complete recovery with hydration. 5. hypokalemia: mild and being corrected by infusion of IV potassium chloride. 6. Alcohol abuse: the patient has a history of Wernickies encephalopathy, uses alcohol daily and has a history of seizure related to hospitalization. The suspect is that this related to alcohol withdrawal. I suspect the patient has had alcohol withdrawal within this week likely related to all of the above. 7. elevated sensitive troponin: Troponin is elevated in the range of 25 a repeat is flat as well consistent with not clearing the troponin from the blood secondary to poor renal function. Departure - Departure Disposition: 66 [facility] DC/Xfer Clinical Impression: Dehydration with hyponatremia, Hypokalemia, Acute kidney injury Syncope Qualifiers: Syncope type: unspecified Qualified Code(s): R55 - Syncope and collapse
[2022-04-04] MEDS ORDERED: THIAMINE INJ 100 MG, MAGNESIUM SULFATE 2 GM, MULTIVITAMIN 10 ML, FOLIC ACID INJ 1 MG in... IV ONE ×5 (12:16)
[2022-04-04 12:18] LABS: ALBUMIN 3.6 g/dL (3.2-5.5); ALBUMIN/GLOBULIN RATIO 1.4 (1.0-2.2); CREATININE 2.5 mg/dL (0.6-1.2); POTASSIUM 3.2 mmol/L (3.5-5.0); TOTAL PROTEIN 6.1 g/dL (6.7-8.2)
[2022-04-04 12:20] LABS: BASOPHILS % (AUTO) 0.2 %; EOSINOPHILS % (AUTO) 0.1 %; HCT - HEMATOCRIT 34.9 % (42.0-52.0); LYMPHOCYTES # (AUTO) 0.6 10^3/uL (1.5-3.5); MEAN CORPUSCULAR HEMOGLOBIN 34.1 pg (27.0-31.0); MEAN CORPUSCULAR HGB CONC 37.2 g/dL (32.0-36.0); MEAN CORPUSCULAR VOLUME 91.6 fL (80.0-94.0); MEAN PLATELET VOLUME 10.3 fL (7.4-11.4); MONOCYTES # (AUTO) 1.1 10^3/uL (0.0-1.0); MONOCYTES % (AUTO) 9.1 %; NEUTROPHILS # (AUTO) 10.4 10^3/uL (1.5-6.6); NEUTROPHILS % (AUTO) 84.1 %; PLT - PLATELET COUNT 222 10^3/uL (130-450); RED BLOOD COUNT 3.81 10^6/uL (4.70-6.10); RED CELL DISTRIBUTION WIDTH 11.3 % (12.0-15.0); WHITE BLOOD COUNT 12.4 x10^3/uL (4.8-10.8)
[2022-04-04 12:22] LABS: SLIDE REVIEW? Indicated
[2022-04-04 12:24] LABS: PLATELET ESTIMATE, MANUAL NORMAL (130-450,000) (NORMAL); PLATELET MORPHOLOGY NORMAL APPEARANCE (NORMAL); RBC MORPHOLOGY (MULTIPLE) NORMAL APPEARANCE (NORMAL)
--- NOTE | 2022-04-04 13:09 | CT Report ---
PROCEDURE: CT brain without contrast INDICATIONS: fall altered LOC hyponatremia TECHNIQUE: Noncontrast 4.5 mm thick angled axial sections acquired from the foramen magnum to the vertex. For r adiation dose reduction, the following was used: automated exposure control, adjustment of mA and/or kV according to patient size. COMPARISON: None. FINDINGS: Image quality: Excellent. CSF spaces: Basal cisterns are patent. No extra-axial fluid collections. Ventricles are normal in size and shape. Brain: No midline shift. No intracranial masses or hemorrhage. Old right thalamic lacunar infarct, stable from prior. Atrophy and mild white matter chronic ischemic change Skull and face: Calvarium and visualized facial bones are intact, without suspicious lesions. Sinuses: Visualized sinuses and mastoids are clear. IMPRESSION: Stable atrophy, chronic ischemic change and old right thalamic lacunar infarct Reviewed by: Saad Aquino MD on 04/04/2022 12:08 PM [facility]ST Approved by: Saad Aquino MD on 04/04/2022 12:08 PM AKST Station ID: [id number]
[2022-04-04] MEDS ORDERED: POTASSIUM CHLOR 10 MEQ/100 ML 10 MEQ/100 ML BAG IV ONE (14:06)
[2022-04-04 14:30] LABS: CALCIUM 8.2 mg/dL (8.5-10.3); CREATININE 2.3 mg/dL (0.6-1.2)
[2022-04-04 15:00] LABS: B. PARAPERTUSSIS- RESP PCR PAN NOT DETECTED; B. PERTUSSIS- RESP PCR PANEL NOT DETECTED; C. PNEUMONIAE- RESP PCR PANEL NOT DETECTED; CORONAVIRUS 229E-RESP PCR NOT DETECTED; CORONAVIRUS HKU1-RESP PCR NOT DETECTED; CORONAVIRUS NL63-RESP PCR NOT DETECTED; CORONAVIRUS OC43-RESP PCR NOT DETECTED; HUMAN METAPNEUMOVIRUS NOT DETECTED; INFLUENZA A- RESP PCR PANEL NOT DETECTED; INFLUENZA B - RESP PCR PANEL NOT DETECTED; M. PNEUMONIAE- RESP PCR PANEL NOT DETECTED; PARAINFLUENZA VIRUS 1 NOT DETECTED; PARAINFLUENZA VIRUS 2 NOT DETECTED; PARAINFLUENZA VIRUS 3 NOT DETECTED; PARAINFLUENZA VIRUS 4 NOT DETECTED; RHINOVIRUS/ENTEROVIRUS NOT DETECTED; RSV- RESP PCR PANEL NOT DETECTED; SARS-CoV-2 -RESP PCR PANEL NOT DETECTED
[2022-04-04 15:04] LABS: GLUCOSE, URINE (UA) NEGATIVE (NEGATIVE); KETONES,URINE (UA) TRACE mg/dL (NEGATIVE); LEUKOCYTE ESTERASE, URINE NEGATIVE (NEGATIVE); NITRITE,URINE NEGATIVE (NEGATIVE); OCCULT BLOOD,URINE SMALL (NEGATIVE); PROTEIN,URINE TRACE mg/dL (NEGATIVE); UROBILINOGEN,URINE 0.2 (NORMAL) E.U./dL (NORMAL)
[2022-04-04 15:10] LABS: BILIRUBIN,URINE NEGATIVE (NEGATIVE); CLARITY,URINE CLEAR (CLEAR); ICTOTEST,URINE NEGATIVE
[2022-04-04 15:18] LABS: BACTERIA,URINE Rare /HPF (None Seen); CASTS, URINE 0-2 Hyaline Casts /LPF; RBC,URINE 0-5 /HPF (0-5); SQUAMOUS EPITHELIAL CELL,UR RARE Squamous (<= Few); WBC,URINE 0-3 /HPF (0-3)
[2022-04-04] MEDS ORDERED: ONDANSETRON 4 MG/2 ML VIAL IVP PRN (16:43)
[2022-04-04] MEDS ORDERED: SODIUM CHLORIDE FLUSH 0.9% 10 ML SYRINGE IVP PRN (16:43)
--- NOTE | 2022-04-04 16:54 | HISTORY & PHYSICAL EXAMINATION ---
Chief Complaint - Chief Complaint Chief Complaint: Syncope at home History of Present Illness - Admitted From Admitted From:: ED - History Obtained From Records Reviewed: Maranda, Imelda History obtained from: Ed provider, chart review and the patient - History of Present Illness HPI Comment/Other: This is a 71-year-old white male who has a history of alcohol abuse, this started in his 20s and he is attended rehabs then was sober for about 10 years and resumed drinking again in his 30s. 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 Patient was admitted here in 2019 for dehydration from alcohol abuse and vomiting and diarrhea. He was noted to have ataxia and Warnicke's encephalopathy. He was t reated with high-dose IV thiamine for several days. He was discharged to a SNF. At that time he had just moved here from [place], to live with his mother and be the caregiver for his mother. The patient has not seen a provider since Covid started and he is not Covid vaccinated. He now lives alone, and says his mother is in a NH. He presents now after falling at home. He described that he has been dizzy for 3 to 4 days. He takes no medicines now. He drinks a box of wine a week, but says he last drank a few days ago. There has been no vomiting or diarrhea. He was walking from the bathroom and was dizzy and had syncope last night. He thinks he fell on the left side of his head. He guesses that he was on the ground an hour. He cannot remember getting up. This am he talked with a neighbor, who was concerned and called 911. By EMS, his initial BP was 70/50, and he got 500 cc of saline en route. In the ED he was still hypotensive with systolic blood pressure of 99. He was started on iv fluids which improved his blood pressure. Labs then returned and he was found to have a sodium of 116 and a creatinine of 2.5 (his usual creatinine is 1.0). The patient was started and on an IV banana bag. The ED provider reached out to me on the Hospitalist team and we discussed caring for this patient as an inpatient to manage hyponatremia, GERTRUDE and syncope. Patient's LFTs are mildly elevated. He has no measurable alcohol on his tox serum screen. His urine sodium is 20. He is Covid negative. History - Past Medical History Cardiovascular: reports: None Respiratory: reports: None Neuro: reports: Seizure disorder (on no seizure meds because those were alcohol- withdrawal seizures) Endocrine/Autoimmune: reports: None GI: reports: None : reports: None HEENT: reports: None Psych: reports: None, Other Musculoskeletal: reports: None Derm: reports: None MRSA Hx?: Yes - Past Surgical History General: reports: Gastric surgery - Family & Social History Family History: Mother: Alive and Well, Father: Family History Comment/Other: He cannot remember Living arrangement: At home Living Situation: Alone - Substance History Abuse: Recurrent use of substance despite neg consequences: Alcohol Meds/Allgy - Home Medications Home Medications: Ambulatory Orders Medication Instructions Recorded Confirmed No Known Home Medications 04/04/22 04/04/22 - Allergies Allergies/Adverse Reactions: Allergies Allergy/AdvReac Type Severity Reaction Status Date / Time No Known Drug Allergies Allergy Verified 04/04/22 11:34 Review of Systems - Cardiovascular Cariovascular: reports: Lightheadedness - All Other Systems All Other Systems: reports: Reviewed and negative Exam - Vital Signs Reviewed Vital Signs: Yes Vital Signs: Vital Signs x48h Temp Pulse Resp BP Pulse Ox 04/04/22 16:00 78 18 110/57 L 98 04/04/22 15:36 36.5 C 75 14 102/59 L 100 04/04/22 14:30 82 19 126/61 97 04/04/22 14:03 77 18 126/61 100 04/04/22 13:09 80 14 116/59 L 97 04/04/22 12:12 85 16 125/78 97 04/04/22 11:41 86 20 115/60 97 04/04/22 11:34 36.8 C 80 18 99/85 H 99 - Physical Exam General Appearance: positive: No acute distress, Alert Eyes Bilateral: positive: Normal inspection, EOMI ENT: positive: Dry mucous membranes Neck: positive: Nml inspection, No JVD Respiratory: positive: Chest non-tender, No respiratory distress, Breath sounds nml Cardiovascular: positive: Regular rate & rhythm, No murmur Abdomen: positive: Non-tender, Nml bowel sounds, No distention Skin: positive: Warm, Dry, Other (MAny abraisions R leg, R foot, R arm) Neurologic/Psychiatric: positive: Oriented x3, Other (Has a resting tremor vs shaking chills, no intentional tremor) Conclusion/Plan - Problem List (1) Dehydration with hyponatremia Conclusion/Plan: He has hypovolemic hyponatremia Plan: Continue with IV containing saline at 100 cc an hour. Goal is to correct his serum sodium not faster than 6 to 8 mEq per 24 hours Follow serum sodium every 6 hours (2) Acute kidney injury Conclusion/Plan: Probably related to volume depletion Plan: Avoid nephrotoxins Give iv fluids as in #1 Follow BMP daily (3) Syncope Conclusion/Plan: This is also probably from his hypovolemia. He had a ground-level fall and has a small bruise of his left scalp. The head CT was negative for acute findings but does show chronic atrophy changes and an old thalamic stroke. Plan: Will give IV fluids for several days Will check orthostatic vital signs and order PT & OT Place on telemetry to monitor for arrhythmias Will order CIWA protocol with as needed iv Ativan dosing, in case this was a withdrawal seizure and not syncope. Will obtain Echo for syncope W/U Qualifiers: Syncope type: unspecified Qualified Code(s): R55 - Syncope and collapse (4) Alcohol abuse Conclusion/Plan: As per Hx. Plan: We will continue with IV banana bag thiamine and additives skin NS We will order CIWA protocol and IV Ativan as needed (5) Elevated LFTs Conclusion/Plan: In AST 190, ALT 102, likely from alcohol abuse. These were not elevated when he had admission in 2019. No imaging of the abdomen or liver was done in the ER, as there were no GI symptoms Plan: Follow LFTs intermittently Avoid hepatotoxins (6) Abrasions of multiple sites Conclusion/Plan: He has multiple abrasions of the right side, his right arm, a skin tear near R elbow, a large "rug burn" abraision of his lateral right thigh, abraision on right calf and right heel Plan: We will obtain CK to check for rhabdomyolysis Continue iv fluids Topical care and prn pain meds - Lab Results Fish Bones: 04/05/22 05:11 04/05/22 05:11 - Diagnostic Imaging Results Diagnostic Imaging Results: positive: Final report reviewed - Other Other Results/Comments: Attestation: The patient is expected to be discharged or transferred to another facility within 96 hours: Yes.
[2022-04-04] MEDS ORDERED: LORazepam 2 MG/ML VIAL IVP PRN (17:06)
[2022-04-04 17:24] LABS: PT - PROTHROMBIN TIME 11.3 secs (9.9-12.6)
[2022-04-04] MEDS: ACETAMINOPHEN 325 MG TABLET PO PRN ×2 (18:18→22:56)
[2022-04-04] MEDS: SODIUM CHLORIDE FLUSH 0.9% 10 ML SYRINGE IVP SCH ×2 (18:18→22:45)
[2022-04-04] MEDS: SODIUM CHLORIDE 0.9% 1,000 ML IV SCH (22:46)
[2022-04-05] MEDS: ACETAMINOPHEN 325 MG TABLET PO PRN ×3 (03:33→19:53)
[2022-04-05 05:31] LABS: BASOPHILS % (AUTO) 0.3 %; EOSINOPHILS # (AUTO) 0.1 10^3/uL (0.0-0.7); EOSINOPHILS % (AUTO) 0.7 %; HGB - HEMOGLOBIN 11.7 g/dL (14.0-18.0); LYMPHOCYTES # (AUTO) 1.2 10^3/uL (1.5-3.5); LYMPHOCYTES % (AUTO) 11.9 %; MEAN CORPUSCULAR HEMOGLOBIN 34.4 pg (27.0-31.0); MEAN CORPUSCULAR HGB CONC 36.6 g/dL (32.0-36.0); MEAN CORPUSCULAR VOLUME 94.1 fL (80.0-94.0); MONOCYTES # (AUTO) 1.1 10^3/uL (0.0-1.0); MONOCYTES % (AUTO) 10.8 %; NEUTROPHILS # (AUTO) 7.5 10^3/uL (1.5-6.6); NEUTROPHILS % (AUTO) 75.2 %; PLT - PLATELET COUNT 239 10^3/uL (130-450); RED CELL DISTRIBUTION WIDTH 11.6 % (12.0-15.0); WHITE BLOOD COUNT 9.9 x10^3/uL (4.8-10.8)
[2022-04-05 05:56] LABS: ALBUMIN/GLOBULIN RATIO 1.3 (1.0-2.2); BILIRUBIN,TOTAL 0.5 mg/dL (0.2-1.0); CALCIUM 8.7 mg/dL (8.5-10.3); CREATININE 1.6 mg/dL (0.6-1.2); MAGNESIUM 2.1 mg/dL (1.7-2.8); TOTAL PROTEIN 5.3 g/dL (6.7-8.2)
[2022-04-05 06:02] LABS: POTASSIUM 2.5 mmol/L (3.5-5.0)
[2022-04-05] MEDS: SODIUM CHLORIDE 0.9% 1,000 ML IV SCH (06:49)
[2022-04-05] MEDS: POTASSIUM CHLOR 10 MEQ/100 ML 10 MEQ/100 ML BAG IV SCH ×4 (08:44→13:55)
[2022-04-05] MEDS ORDERED: MULTIVITAMIN 10 ML, THIAMINE INJ 100 MG, MAGNESIUM SULFATE 2 GM, FOLIC ACID INJ 1 MG in... IV SCH ×5 (09:00)
[2022-04-05] MEDS: SODIUM CHLORIDE FLUSH 0.9% 10 ML SYRINGE IVP SCH ×2 (10:32→17:48)
[2022-04-05 12:50] LABS: ESTIMATED AVERAGE GLUCOSE 120 mg/dL (70-100); HEMOGLOBIN A1c% 5.8 % (4.27-6.07)
[2022-04-05] MEDS: oxyCODONE 5 MG TABLET PO PRN ×2 (13:55→19:53)
[2022-04-05] MEDS: LIDOCAINE PATCH 5% TOP PRN (13:55)
--- NOTE | 2022-04-05 15:36 | PROVIDER PROGRESS NOTE ---
Assessment/Plan - Problem List (1) Dehydration with hyponatremia Assessment/Plan: He had hypovolemic hyponatremia. The sodium has improved slowly, this morning it is 123. He is not orthostatic today, since getting iv NS Banana Bag. Plan: Continue with IV containing saline at 100 cc an hour. Goal is to correct his serum sodium not faster than 6 to 8 mEq per 24 hours Follow serum sodium every 6 hours (2) Syncope Conclusion/Plan: He described being dizzy for the last few days, then had an unwitnessed fall at home. He thinks he "blacked out". This was also probably from his hypovolemia. The head CT was negative for acute findings but does show chronic atrophy sury nges and an old thalamic stroke. Plan: Cont IV fluids Follow orthostatic vital signs Start PT & OT today Cont telemetry to monitor for arrhythmias Awaiting Echo, to be done today Cont to monitor on CIWA protocol with as needed iv Ativan dosing, in case this was a withdrawal seizure and not syncope. Qualifiers: Syncope type: unspecified Qualified Code(s): R55 - Syncope and collapse (3) Rhabdomyolysis CK was not measured by the ER. Because of the multiple abrasions seen, his total CK was ordered and came back at 2700, on repeat it is 1400 today after receiving iv NS Plan: Avoid nephrotoxins Continue IV saline Follow CK daily (4) Acute kidney injury Conclusion/Plan: Probably related to volume depletion and elevated CK. Labs were reviewed. Creat is slowly improving with hydration. Plan: Avoid nephrotoxins Give iv fluids as in #1 Follow BMP daily (5) Hypokalemia Related to poor intake as well Plan: We will give K riders and p.o. replacement Follow BMP daily (6) Hyperglycemia Patient is running fasting glucoses of 1 15- Plan: Check A1c (7) Low back pain The patient states this is a chronic problem for him, told me he takes either Tylenol or Percocet when he gets this pain. It is not worse than what it was before he had yesterday's fall at home. Plan" We will order topical lidocaine patch Continue with prn Tylenol for mild pain and will add prn oxycodone for more severe pain (8) Alcohol abuse Conclusion/Plan: As per Hx. Plan: We will continue with IV banana bag thiamine and additives skin NS We will order CIWA protocol and IV Ativan as needed SW to see and provide resources to stop abuse (9) Elevated LFTs Conclusion/Plan: His AST 190, ALT 102 at admission, likely from alcohol abuse. These were not elevated when he had admission in 2019. No imaging of the abdomen or liver was done in the ER, as there were no GI symptoms. There is no ascites, by clinical exam. Plan: Follow LFTs intermittently Avoid hepatotoxins (10) Abrasions of multiple sites Conclusion/Plan: He has multiple abrasions of the right side, his right arm, a skin tear near R elbow, a large "rug burn" abraision of his lateral right thigh, abraision on right calf and right heel Plan: Continue iv fluids Topical care and prn pain meds - Current Meds Current Meds: Current Medications Generic Name Dose Route Start Last Admin Trade Name Freq PRN Reason Stop Dose Admin Acetaminophen 650 mg 04/04/22 16:43 04/05/22 13:02 Acetaminophen 325 Mg Tablet PO 650 mg Q4HR PRN Administration Pain 1 to 4, or Fever Multivitamins 10 ml/ Thiamine 1,015.2 mls @ 100 mls/hr 04/05/22 09:00 04/05 12:30 HCl 100 mg/ Magnesium Sulfate IV 100 mls/hr 2 gm/ Folic Acid 1 mg/ Sodium DAILY CHAZ Infusion Chloride Sodium Chloride 1,000 mls @ 125 mls/hr 04/04/22 23:00 04/05/22 12:30 Normal Saline 0.9% IV 0 mls/hr .Q8H CHAZ Infusion Lidocaine 1 patch 04/05/22 13:02 04/05/22 13:55 Lidocaine Patch 5% TOP 1 patch DAILY PRN Administration PAIN Oxycodone HCl 5 mg 04/05/22 13:03 04/05/22 13:55 Oxycodone 5 Mg Tablet PO 5 mg Q6HR PRN Administration PAIN 5-7 Sodium Chloride 10 ml 04/04/22 17:00 04/05/22 10:32 Sodium Chloride Flush 0.9% 10 Ml Syringe IVP 10 ml 0100,0900,1700 CHAZ Administration - Lab Result Fish Bone Diagrams: 04/05/22 05:11 04/05/22 12:29 - Additional Planning My Orders: My Active Orders 04/04/22 Dinner Soft Mechanical Diet [DIET] 04/04/22 16:43 Activity Orders [RC] Q2HR IO [RC] IOSHIFT Incentive Spirometry - RT [RC] TID Initiate Bowel Care Protocol [RC] .protocol Initiate Line Care Protocol [RC] QSHIFT Initiate Personal Care Protoco [RC] .protocol Oxygen Therapy [RC] .PRN Vital Signs [RC] Q4HR Acetaminophen [Tylenol] 650 mg PO Q4HR PRN Ondansetron Inj [Zofran Inj] 4 mg IVP Q6HR PRN Sodium Chloride Flush 0.9% [Normal Saline Flush 0.9%] 10 ml IVP PRN PRN Code Status [OTHERS] Routine Condition of Patient [OTHERS] Routine DVT Prophylaxis [OTHERS] Routine 04/04/22 16:45 Daily Weight [RC] 0600 IV Insert [RC] .ONCE SCDs [RC] QSHIFT Evaluate and Treat OT [OT] Routine Evaluate and Treat PT [PT] Routine 04/04/22 17:00 Sodium Chloride Flush 0.9% [Normal Saline Flush 0.9%] 10 ml IVP 0100,0900,1700 04/04/22 17:05 Telemetry- [RC] Q4HR 04/04/22 17:06 Blood Glucose POC [RC] 0800,1200,1700,2100 CIWA - AR Score Card [RC] Q4HR Social Work Consult [CONS] Routine LORazepam INJ [Ativan Inj (Vial)] 2 mg IVP Q30M PRN 04/05/22 07:00 Orthostatic [Vital Signs - Orthostatic] [RC] DAILY Echo Transthoracic Complete [ECHO] Routine 04/05/22 09:00 Multivitamin [Infuvite] 10 ml Thiamine Inj [Vitamin B-1 Inj] 100 mg Magnesium Sulfate 2 gm Folic Acid Inj [Folic Acid] 1 mg Sodium Chloride 0.9% [Normal Saline 0.9%] 1,000 ml IV DAILY 04/05/22 13:02 Lidocaine Patch 5% [Lidoderm Patch] 1 patch TOP DAILY PRN 04/05/22 13:03 oxyCODONE [Roxicodone] 5 mg PO Q6HR PRN 04/05/22 18:00 SODIUM [CHEM] Q6H 04/06/22 00:00 SODIUM [CHEM] Q6H 04/06/22 05:00 COMPREHENSIVE METABOLIC PANEL [CHEM] DAILYLAB 04/07/22 05:00 COMPREHENSIVE METABOLIC PANEL [CHEM] DAILYLAB Subjective - Subjective Patient Reports: Pain (c/o low back pain, worse with movement or standing, similar to before this fall.) Objective Vital Signs: Vital Signs - 24 hr 04/04/22 04/04/22 04/04/22 15:36 16:00 17:00 Temperature 36.5 C 36.5 C Heart Rate 75 78 Heart Rate [ 80 Brachial] Respiratory 14 18 18 Rate Blood Pressure 102/59 L 110/57 L Blood Pressure 139/76 H [Left Brachial artery] Blood Pressure [Sitting] Blood Pressure [Standing] O2 Saturation 100 98 100 04/04/22 04/05/22 04/05/22 21:00 01:36 05:16 Temperature 36.5 C 36.5 C 36.5 C Heart Rate Heart Rate [ 93 73 74 Brachial] Respiratory 18 16 18 Rate Blood Pressure Blood Pressure 101/42 L 121/49 L 121/58 L [Left Brachial artery] Blood Pressure [Sitting] Blood Pressure [Standing] O2 Saturation 97 100 97 04/05/22 04/05/22 04/05/22 08:13 12:05 13:05 Temperature 36.4 C L 36.8 C Heart Rate Heart Rate [ 77 78 Brachial] Respiratory 18 20 Rate Blood Pressure Blood Pressure 128/60 143/71 H [Left Brachial artery] Blood Pressure 159/79 H [Sitting] Blood Pressure 154/83 H [Standing] O2 Saturation 98 100 Oxygen O2 Source Room air I&O (Last 24 Hrs): Intake and Output Totals x24h 04/03/22 04/04/22 04/05/22 23:59 23:59 23:59 Intake Total 1615.2 3208.500 Balance 1615.2 3208.500 General: Alert, Oriented x3 HEENT: Mucous membr. moist/pink Neck: Supple, No JVD Neuro: Alert, Non Focal Cardiovascular: Regular rate, No murmurs Respiratory: No respiratory distress, Breath sounds nml Abdomen: Normal bowel sounds, Soft, No tenderness Extremities: No clubbing, Other (Mult abraisions R lateral leg and R arm) - Results Results: Laboratory Results WBC 9.9 x10^3/uL (4.8-10.8) 04/05/22 05:11 RBC 3.40 10^6/uL (4.70-6.10) L 04/05/22 05:11 Hgb 11.7 g/dL (14.0-18.0) L 04/05/22 05:11 Hct 32.0 % (42.0-52.0) L 04/05/22 05:11 MCV 94.1 fL (80.0-94.0) H 04/05/22 05:11 MCH 34.4 pg (27.0-31.0) H 04/05/22 05:11 MCHC 36.6 g/dL (32.0-36.0) H 04/05/22 05:11 RDW 11.6 % (12.0-15.0) L 04/05/22 05:11 Plt Count 239 10^3/uL (130-450) 04/05/22 05:11 MPV 10.0 fL (7.4-11.4) 04/05/22 05:11 Neut # (Auto) 7.5 10^3/uL (1.5-6.6) H 04/05/22 05:11 Lymph # (Auto) 1.2 10^3/uL (1.5-3.5) L 04/05/22 05:11 [place] # (Auto) 1.1 10^3/uL (0.0-1.0) H 04/05/22 05:11 Eos # (Auto) 0.1 10^3/uL (0.0-0.7) 04/05/22 05:11 Baso # (Auto) 0.0 10^3/uL (0.0-0.1) 04/05/22 05:11 Absolute Nucleated RBC 0.00 x10^3/uL 04/05/22 05:11 Nucleated RBC % 0.0 /100WBC 04/05/22 05:11 Manual Slide Review Indicated 04/04/22 11:46 Platelet Estimate NORMAL (130-450,000) (NORMAL) 04/04/22 11:46 Platelet Morphology NORMAL APPEARANCE (NORMAL) 04/04/22 11:46 RBC Morph Micro Appear NORMAL APPEARANCE (NORMAL) 04/04/22 11:46 PT 11.3 secs (9.9-12.6) 04/04/22 11:39 INR 1.0 (0.8-1.2) 04/04/22 11:39 Sodium 123 mmol/L (135-145) L 04/05/22 12:29 Potassium 2.5 mmol/L (3.5-5.0) L* 04/05/22 05:11 Chloride 86 mmol/L (101-111) L 04/05/22 05:11 Carbon Dioxide 23 mmol/L (21-32) 04/05/22 05:11 Anion Gap 12.0 (6-13) 04/05/22 05:11 BUN 42 mg/dL (6-20) H 04/05/22 05:11 Creatinine 1.6 mg/dL (0.6-1.2) H 04/05/22 05:11 Estimated GFR (MDRD) 43 (>89) L 04/05/22 05:11 Glucose 137 mg/dL (70-100) H 04/05/22 05:11 Estimat Average Glucose 120 mg/dL (70-100) H 04/05/22 12:29 Hemoglobin A1c % 5.8 % (4.27-6.07) 04/05/22 12:29 Calcium 8.7 mg/dL (8.5-10.3) 04/05/22 05:11 Magnesium 2.1 mg/dL (1.7-2.8) 04/05/22 05:11 Total Bilirubin 0.5 mg/dL (0.2-1.0) 04/05/22 05:11 AST 110 IU/L (10-42) H 04/05/22 05:11 ALT 77 IU/L (10-60) H 04/05/22 05:11 Alkaline Phosphatase 54 IU/L (42-121) 04/05/22 05:11 Total Creatine Kinase 1429 IU/L (22-269) H* 04/05/22 05:11 Troponin I High Sens 25.5 ng/L (2.3-19.7) H* 04/04/22 14:07 Total Protein 5.3 g/dL (6.7-8.2) L 04/05/22 05:11 Albumin 3.0 g/dL (3.2-5.5) L 04/05/22 05:11 Globulin 2.3 g/dL (2.1-4.2) 04/05/22 05:11 Albumin/Globulin Ratio 1.3 (1.0-2.2) 04/05/22 05:11 Lipase 34 U/L (22-51) 04/04/22 11:46 Urine Color YELLOW 04/04/22 14:50 Urine Clarity CLEAR (CLEAR) 04/04/22 14:50 Urine pH 6.0 PH (5.0-7.5) 04/04/22 14:50 Ur Specific [place] 1.015 (1.002-1.030) 04/04/22 14:50 Urine Protein TRACE mg/dL (NEGATIVE) 04/04/22 14:50 Urine Glucose (UA) NEGATIVE mg/dL (NEGATIVE) 04/04/22 14:50 Urine Ketones TRACE mg/dL (NEGATIVE) 04/04/22 14:50 Urine Occult Blood SMALL (NEGATIVE) H 04/04/22 14:50 Urine Nitrite NEGATIVE (NEGATIVE) 04/04/22 14:50 Urine Bilirubin NEGATIVE (NEGATIVE) 04/04/22 14:50 Urine Urobilinogen 0.2 (NORMAL) E.U./dL (NORMAL) 04/04/22 14:50 Ur Leukocyte Esterase NEGATIVE (NEGATIVE) 04/04/22 14:50 Urine RBC 0-5 /HPF (0-5) 04/04/22 14:50 Urine WBC 0-3 /HPF (0-3) 04/04/22 14:50 Ur Squamous Epith Cells RARE Squamous (<= Few) 04/04/22 14:50 Urine Bacteria Rare /HPF (None Seen) 04/04/22 14:50 Urine Casts 0-2 Hyaline Casts /LPF 04/04/22 14:50 Ur Microscopic Review INDICATED 04/04/22 14:50 Urine Culture Comments NOT INDICATED 04/04/22 14:50 Urine Sodium 21.0 mmol/L 04/04/22 14:50 Nasal Adenovirus (PCR) NOT DETECTED 04/04/22 14:00 Nasal B. parapertussis DNA (PCR) NOT DETECTED 04/04/22 14:00 Nasal Coronavir 229E PCR NOT DETECTED 04/04/22 14:00 Nasal Coronavir HKU1 PCR NOT DETECTED 04/04/22 14:00 Nasal Coronavir NL63 PCR NOT DETECTED 04/04/22 14:00 Nasal Coronavir OC43 PCR NOT DETECTED 04/04/22 14:00 Nasal Enterovir/Rhinovir PCR NOT DETECTED 04/04/22 14:00 Nasal Influenza B PCR NOT DETECTED 04/04/22 14:00 Nasal Influenza A PCR NOT DETECTED 04/04/22 14:00 Nasal Parainfluen 1 PCR NOT DETECTED 04/04/22 14:00 Nasal Parainfluen 2 PCR NOT DETECTED 04/04/22 14:00 Nasal Parainfluen 3 PCR NOT DETECTED 04/04/22 14:00 Nasal Parainfluen 4 PCR NOT DETECTED 04/04/22 14:00 Nasal RSV (PCR) NOT DETECTED 04/04/22 14:00 Nasal B.pertussis DNA PCR NOT DETECTED 04/04/22 14:00 Nasal C.pneumoniae (PCR) NOT DETECTED 04/04/22 14:00 Chet Human Metapneumo PCR NOT DETECTED 04/04/22 14:00 Nasal M.pneumoniae (PCR) NOT DETECTED 04/04/22 14:00 Nasal SARS-CoV-2 (PCR) NOT DETECTED 04/04/22 14:00 Ethyl Alcohol < 5.0 mg/dL 04/04/22 11:46
[2022-04-05] MEDS ORDERED: SODIUM CHLORIDE 0.9% 1,000 ML IV SCH (17:29)
[2022-04-06] MEDS: oxyCODONE 5 MG TABLET PO PRN ×3 (05:20→20:20)
[2022-04-06] MEDS: ACETAMINOPHEN 325 MG TABLET PO PRN ×3 (05:20→23:59)
[2022-04-06] MEDS: SODIUM CHLORIDE FLUSH 0.9% 10 ML SYRINGE IVP SCH ×4 (05:21→23:59)
[2022-04-06 06:17] LABS: ALBUMIN/GLOBULIN RATIO 1.2 (1.0-2.2); BILIRUBIN,TOTAL 0.7 mg/dL (0.2-1.0); CALCIUM 8.6 mg/dL (8.5-10.3); TOTAL PROTEIN 5.5 g/dL (6.7-8.2)
[2022-04-06] MEDS: PRENATAL VITAMIN TABLET PO SCH (09:10)
[2022-04-06] MEDS: THIAMINE 100 MG TABLET PO SCH (09:11)
[2022-04-06] MEDS: SODIUM CHLORIDE 0.9% 1,000 ML IV SCH (09:12)
[2022-04-06] MEDS: POTASSIUM CHLOR 10 MEQ/100 ML 10 MEQ/100 ML BAG IV SCH ×4 (10:56→20:21)
--- NOTE | 2022-04-06 17:01 | PROVIDER PROGRESS NOTE ---
Assessment/Plan - Problem List (1) Dehydration with hyponatremia Assessment/Plan: He had hypovolemic hyponatremia. The sodium has improved slowly, this morning it is 124. He is not orthostatic today, since getting iv NS Banana Bag, then NS at 40 cc/hr. Plan: Continue with IV containing saline at 60 cc an hour today Goal is to correct his serum sodium not faster than 6 to 8 mEq per 24 hours Follow serum sodium every 6 hours>> today every 12 hrs (2) Syncope Conclusion/Plan: He described being dizzy for the last few days, then had an unwitnessed fall at home. He thinks he "blacked out". This was also probably from his hypovolemia. The head CT was negative for acute findings but does show chronic atrophy changes and an old thalamic stroke. Echo was essentially normal Plan: Cont IV fluids Follow orthostatic vital signs Cont PT & OT Cont telemetry to monitor for arrhythmias Cont to monitor on CIWA protocol with as needed iv Ativan dosing, in case this was a withdrawal seizure and not syncope. Qualifiers: Syncope type: unspecified Qualified Code(s): R55 - Syncope and collapse (3) Rhabdomyolysis CK was not measured by the ER. Because of the multiple abrasions seen, his total CK was ordered and came back at 2700, on repeat it was 1400 after receiving iv NS Plan: Avoid nephrotoxins Continue IV saline Follow CK (4) Acute kidney injury Conclusion/Plan: Probably related to volume depletion and elevated CK. Labs were reviewed. Creat has slowly improved with hydration, is 1.0 today. Pre-renal BUN/creat numbers today: 24/1.0 Plan: Avoid nephrotoxins Cont iv fluids Follow BMP daily (5) Hypokalemia Related to poor intake as well Plan: We will give K riders and p.o. replacement Follow BMP daily (6) Low back pain The patient states this is a chronic problem for him, told me he takes either Tylenol or Percocet when he gets this pain. It is not worse than what it was before he had yesterday's fall at home. Plan" We will order topical lidocaine patch Continue with prn Tylenol for mild pain and will add prn oxycodone for more severe pain (7) Alcohol abuse Conclusion/Plan: As per Hx. Plan: Finished with IV banana bag thiamine and now on NS. Will start oral Thiamine Cont CIWA protocol and IV Ativan as needed MELI to see and provide resources to stop abuse>> SW reported he wanted no help (8) Elevated LFTs Conclusion/Plan: His AST 190, ALT 102 at admission, likely from alcohol abuse. These were not elevated when he had admission in 2019. No imaging of the abdomen or liver was done in the ER, as there were no GI symptoms. There is no ascites, by clinical exam. Plan: Follow LFTs intermittently Avoid hepatotoxins Stopping alcohol abuse is advised (9) Abrasions of multiple sites Conclusion/Plan: He has multiple abrasions of the right side, his right arm, a skin tear near R elbow, a large "rug burn" abraision of his lateral right thigh, abraision on right calf and right heel Plan: Continue iv fluids Topical care and prn pain meds (10) Hyperglycemia Patient was running fasting glucoses of 115-173. Checked his A1c and it came back normal at 5.8 - Current Meds Current Meds: Current Medications Generic Name Dose Route Start Last Admin Trade Name Elda PRN Reason Stop Dose Admin Acetaminophen 650 mg 04/04/22 16:43 04/06/22 14:17 Acetaminophen 325 Mg Tablet PO 650 mg Q4HR PRN Administration Pain 1 to 4, or Fever Sodium Chloride 1,000 mls @ 60 mls/hr 04/06/22 08:14 04/06/22 09:12 Normal Saline 0.9% IV 60 mls/hr .[id number] CHAZ Administration Lidocaine 1 patch 04/05/22 13:02 04/05/22 13:55 Lidocaine Patch 5% TOP 1 patch DAILY PRN Administration PAIN Oxycodone HCl 5 mg 04/05/22 13:03 04/06/22 14:17 Oxycodone 5 Mg Tablet PO 5 mg Q6HR PRN Administration PAIN 5-7 Multivit/Folic Acid/Iron 1 tab 04/06/22 08:00 04/06/22 09:10 Vitamin Tablet PO 1 tab DAILYWM CHAZ Administration Sodium Chloride 10 ml 04/04/22 17:00 04/06/22 09:11 Sodium Chloride Flush 0.9% 10 Ml Syringe IVP Not Given 0100,0900,1700 CHAZ Thiamine HCl 100 mg 04/06/22 09:00 04/06/22 09:11 Thiamine 100 Mg Tablet PO 100 mg DAILY CHAZ Administration - Lab Result Fish Bone Diagrams: 04/05/22 05:11 04/06/22 16:04 - Additional Planning My Orders: My Active Orders 04/06/22 08:00 Vitamin [Trinatal Rx 1] 1 tab PO DAILYWM 04/06/22 08:14 Miscellaenous Nursing Order [RC] QSHIFT Sodium Chloride 0.9% [Normal Saline 0.9%] 1,000 ml IV 60 mls/hr 04/06/22 08:15 Telemetry-Discontinue [RC] .ONCE 04/06/22 09:00 Thiamine [Vitamin B-1] 100 mg PO DAILY 04/07/22 05:00 COMPREHENSIVE METABOLIC PANEL [CHEM] DAILYLAB Subjective - Subjective Patient Reports: Resting Comfortably, No Complaints Objective Vital Signs: Vital Signs - 24 hr 04/05/22 04/05/22 04/06/22 20:04 23:27 05:04 Temperature 36.8 C 36.5 C 36.5 C Heart Rate [ 75 72 78 Brachial] Respiratory 20 18 18 Rate Blood Pressure 134/57 H 127/60 [Left Brachial artery] Blood Pressure 117/51 L [Right Brachial artery] O2 Saturation 99 96 98 04/06/22 04/06/22 08:26 16:05 Temperature 36.8 C 36.6 C Heart Rate [ 70 77 Brachial] Respiratory 18 24 Rate Blood Pressure [Left Brachial artery] Blood Pressure 125/60 133/65 H [Right Brachial artery] O2 Saturation 98 100 Oxygen O2 Source Room air I&O (Last 24 Hrs): Intake and Output Totals x24h 04/04/22 04/05/22 04/06/22 23:59 23:59 23:59 Intake Total 1615.2 4947.034 867.917 Balance 1615.2 4947.034 867.917 General: Alert, Oriented x3, Other (Disheveled) HEENT: Mucous membr. moist/pink, Other (edentulous) Neck: Supple, No JVD Neuro: Alert, Non Focal Cardiovascular: Regular rate Respiratory: No respiratory distress Abdomen: Soft Extremities: No clubbing, No edema, Other (Multiple abrasions, right side of his body) - Results Results: Laboratory Results WBC 9.9 x10^3/uL (4.8-10.8) 04/05/22 05:11 RBC 3.40 10^6/uL (4.70-6.10) L 04/05/22 05:11 Hgb 11.7 g/dL (14.0-18.0) L 04/05/22 05:11 Hct 32.0 % (42.0-52.0) L 04/05/22 05:11 MCV 94.1 fL (80.0-94.0) H 04/05/22 05:11 MCH 34.4 pg (27.0-31.0) H 04/05/22 05:11 MCHC 36.6 g/dL (32.0-36.0) H 04/05/22 05:11 RDW 11.6 % (12.0-15.0) L 04/05/22 05:11 Plt Count 239 10^3/uL (130-450) 04/05/22 05:11 MPV 10.0 fL (7.4-11.4) 04/05/22 05:11 Neut # (Auto) 7.5 10^3/uL (1.5-6.6) H 04/05/22 05:11 Lymph # (Auto) 1.2 10^3/uL (1.5-3.5) L 04/05/22 05:11 [place] # (Auto) 1.1 10^3/uL (0.0-1.0) H 04/05/22 05:11 Eos # (Auto) 0.1 10^3/uL (0.0-0.7) 04/05/22 05:11 Baso # (Auto) 0.0 10^3/uL (0.0-0.1) 04/05/22 05:11 Absolute Nucleated RBC 0.00 x10^3/uL 04/05/22 05:11 Nucleated RBC % 0.0 /100WBC 04/05/22 05:11 Manual Slide Review Indicated 04/04/22 11:46 Platelet Estimate NORMAL (130-450,000) (NORMAL) 04/04/22 11:46 Platelet Morphology NORMAL APPEARANCE (NORMAL) 04/04/22 11:46 RBC Morph Micro Appear NORMAL APPEARANCE (NORMAL) 04/04/22 11:46 PT 11.3 secs (9.9-12.6) 04/04/22 11:39 INR 1.0 (0.8-1.2) 04/04/22 11:39 Sodium 124 mmol/L (135-145) L 04/06/22 16:04 Potassium 3.0 mmol/L (3.5-5.0) L 04/06/22 05:51 Chloride 89 mmol/L (101-111) L 04/06/22 05:51 Carbon Dioxide 25 mmol/L (21-32) 04/06/22 05:51 Anion Gap 11.0 (6-13) 04/06/22 05:51 BUN 24 mg/dL (6-20) H 04/06/22 05:51 Creatinine 1.0 mg/dL (0.6-1.2) 04/06/22 05:51 Estimated GFR (MDRD) 74 (>89) L 04/06/22 05:51 Glucose 124 mg/dL (70-100) H 04/06/22 05:51 POC Whole Bld Glucose 144 mg/dL (70 - 100) H 04/06/22 16:38 Estimat Average Glucose 120 mg/dL (70-100) H 04/05/22 12:29 Hemoglobin A1c % 5.8 % (4.27-6.07) 04/05/22 12:29 Calcium 8.6 mg/dL (8.5-10.3) 04/06/22 05:51 Magnesium 2.1 mg/dL (1.7-2.8) 04/05/22 05:11 Total Bilirubin 0.7 mg/dL (0.2-1.0) 04/06/22 05:51 AST 70 IU/L (10-42) H 04/06/22 05:51 ALT 70 IU/L (10-60) H 04/06/22 05:51 Alkaline Phosphatase 55 IU/L (42-121) 04/06/22 05:51 Total Creatine Kinase 1429 IU/L (22-269) H* 04/05/22 05:11 Troponin I High Sens 25.5 ng/L (2.3-19.7) H* 04/04/22 14:07 Total Protein 5.5 g/dL (6.7-8.2) L 04/06/22 05:51 Albumin 3.0 g/dL (3.2-5.5) L 04/06/22 05:51 Globulin 2.5 g/dL (2.1-4.2) 04/06/22 05:51 Albumin/Globulin Ratio 1.2 (1.0-2.2) 04/06/22 05:51 Lipase 34 U/L (22-51) 04/04/22 11:46 Urine Color YELLOW 04/04/22 14:50 Urine Clarity CLEAR (CLEAR) 04/04/22 14:50 Urine pH 6.0 PH (5.0-7.5) 04/04/22 14:50 Ur Specific Rand 1.015 (1.002-1.030) 04/04/22 14:50 Urine Protein TRACE mg/dL (NEGATIVE) 04/04/22 14:50 Urine Glucose (UA) NEGATIVE mg/dL (NEGATIVE) 04/04/22 14:50 Urine Ketones TRACE mg/dL (NEGATIVE) 04/04/22 14:50 Urine Occult Blood SMALL (NEGATIVE) H 04/04/22 14:50 Urine Nitrite NEGATIVE (NEGATIVE) 04/04/22 14:50 Urine Bilirubin NEGATIVE (NEGATIVE) 04/04/22 14:50 Urine Urobilinogen 0.2 (NORMAL) E.U./dL (NORMAL) 04/04/22 14:50 Ur Leukocyte Esterase NEGATIVE (NEGATIVE) 04/04/22 14:50 Urine RBC 0-5 /HPF (0-5) 04/04/22 14:50 Urine WBC 0-3 /HPF (0-3) 04/04/22 14:50 Ur Squamous Epith Cells RARE Squamous (<= Few) 04/04/22 14:50 Urine Bacteria Rare /HPF (None Seen) 04/04/22 14:50 Urine Casts 0-2 Hyaline Casts /LPF 04/04/22 14:50 Ur Microscopic Review INDICATED 04/04/22 14:50 Urine Culture Comments NOT INDICATED 04/04/22 14:50 Urine Sodium 21.0 mmol/L 04/04/22 14:50 Nasal Adenovirus (PCR) NOT DETECTED 04/04/22 14:00 Nasal B. parapertussis DNA (PCR) NOT DETECTED 04/04/22 14:00 Nasal Coronavir 229E PCR NOT DETECTED 04/04/22 14:00 Nasal Coronavir HKU1 PCR NOT DETECTED 04/04/22 14:00 Nasal Coronavir NL63 PCR NOT DETECTED 04/04/22 14:00 Nasal Coronavir OC43 PCR NOT DETECTED 04/04/22 14:00 Nasal Enterovir/Rhinovir PCR NOT DETECTED 04/04/22 14:00 Nasal Influenza B PCR NOT DETECTED 04/04/22 14:00 Nasal Influenza A PCR NOT DETECTED 04/04/22 14:00 Nasal Parainfluen 1 PCR NOT DETECTED 04/04/22 14:00 Nasal Parainfluen 2 PCR NOT DETECTED 04/04/22 14:00 Nasal Parainfluen 3 PCR NOT DETECTED 04/04/22 14:00 Nasal Parainfluen 4 PCR NOT DETECTED 04/04/22 14:00 Nasal RSV (PCR) NOT DETECTED 04/04/22 14:00 Nasal B.pertussis DNA PCR NOT DETECTED 04/04/22 14:00 Nasal C.pneumoniae (PCR) NOT DETECTED 04/04/22 14:00 Chet Human Metapneumo PCR NOT DETECTED 04/04/22 14:00 Nasal M.pneumoniae (PCR) NOT DETECTED 04/04/22 14:00 Nasal SARS-CoV-2 (PCR) NOT DETECTED 04/04/22 14:00 Ethyl Alcohol < 5.0 mg/dL 04/04/22 11:46
[2022-04-06] MEDS: LIDOCAINE PATCH 5% TOP PRN (20:20)
[2022-04-07] MEDS: SODIUM CHLORIDE 0.9% 1,000 ML IV SCH (03:12)
[2022-04-07] MEDS: oxyCODONE 5 MG TABLET PO PRN ×2 (03:12→10:03)
[2022-04-07 05:42] LABS: ALBUMIN 2.8 g/dL (3.2-5.5); ALBUMIN/GLOBULIN RATIO 1.1 (1.0-2.2); BILIRUBIN,TOTAL 0.7 mg/dL (0.2-1.0); CALCIUM 8.7 mg/dL (8.5-10.3); CREATININE 0.9 mg/dL (0.6-1.2); POTASSIUM 3.7 mmol/L (3.5-5.0); TOTAL PROTEIN 5.3 g/dL (6.7-8.2)
[2022-04-07] MEDS: ACETAMINOPHEN 325 MG TABLET PO PRN (08:08)
[2022-04-07] MEDS: PRENATAL VITAMIN TABLET PO SCH (08:08)
[2022-04-07] MEDS: THIAMINE 100 MG TABLET PO SCH (08:08)
[2022-04-07] MEDS: SODIUM CHLORIDE FLUSH 0.9% 10 ML SYRINGE IVP SCH (08:08)
--- NOTE | 2022-04-07 08:41 | Discharge Plan ---
"Discharge Plan for SNF / [facility] - Discharge Plan And Transition Orders Problem Reviewed?: Yes Disposition: 03 SNF DC/Xfer Condition: Stable Allergies and Adverse Reactions: Allergies Allergy/AdvReac Type Severity Reaction Status Date / Time No Known Drug Allergies Allergy Verified 04/04/22 11:34 Health Concerns: Patient was admitted after a fall at home. He was found to be severely hyponatremic. He also has a history of alcohol abuse (was recently drinking just wine and water). The patient required admission for treating his hyponatremia and we found him to have generalized weakness and needs PT and OT at rehab. Plan of Treatment: As above. Care Goals: Improvement in symptoms and stabilization are the goals. Assessment: The patient understands and is agreeable with the plan. - SNF / [facility] Transition Orders Admit to (Facility): [facility] Under the care of (Name): Dr Bhupinder Davidson Discharge Diagnosis: (1) Dehydration with hyponatremia He had hypovolemic hyponatremia. Na was 116 at admission and was 130 on day of discharge. (2) Syncope He described being dizzy for the previous few days, then had this unwitnessed fall at home. BP upon presentation to the ER was 99 systolic. With iv fluids, BP improved to 120-140 systolic. (3) Rhabdomyolysis CK was 2700 and improved after receiving iv NS, given for several days. (4) Acute kidney injury Resolved with iv hydration. (5) Hypokalemia Related to poor intake as well and was replaced. (6) Low back pain The patient states this is a chronic problem. We have prescribed Tylenol as needed, topical lidocaine patch daily, and Oxycodone prn. (7) Alcohol abuse He was on IV banana bag for several days. Now he is on oral thiamine. A CIWA protocol was ordered. He did not have sx of alcohol withdrawal. (8) Elevated LFTs His AST 190, ALT 102 at admission, likely from alcohol abuse. But he had normal bilirubin of 1.0 and INR was 1.0. (9) Abrasions of multiple sites He has multiple abrasions of the right side of his body. Topical care ordered. Medicare Certification Statement: I certify that Post Hospital custodial care is medically necessary on a continuing basis for any of the conditions for which she/he is receiving care during hospitalization. Notify PCP of admission and forward orders to primary provider for signature. Weight on admission and: Weekly Call PCP immediately if weight increases by: 5 kg Other Notification Orders: Call PCP immediately if patient develops dyspnea, chest pain/tightness or edema. House Bowel Program: Yes Additional Bowel Program Orders: If no BM after 2 days, nurse may give M.O.M. 30ml PO PRN and/or ducolax Supp 1 IA and/or ALCIDES 250mg P.O., and/or senna 1-2 tabs PO. On day 3 nurse may give repeat above order until residents constipation is resolved. Annual Influenza Vaccine (between Oct 13 and May 12): Yes Two-step PPD per [facility] [phone] or approved exception documents: Yes Treatments & Other Orders: Daily PT and OT Medication Orders: PLEASE REFER TO THE DISCHARGE MEDICATION LIST. Insulin Orders?: No - Medications New Prescriptions: Acetaminophen [Tylenol] 650 mg PO Q4HR PRN #40 tab PRN Reason: Pain 1 to 4, or Fever oxyCODONE [Roxicodone] 5 mg PO Q6HR PRN #10 tab PRN Reason: Severe Pain Lidocaine Patch 5% [Lidoderm Patch] 1 patch TOP DAILY PRN #30 patch PRN Reason: Pain Thiamine [Vitamin B-1] 100 mg PO DAILY #30 tab - Diet Type: Geriatric (Free water restriction of 1800 cc/day) Texture: Mech soft Liquids: Thin May have monthly special meal: Yes - Therapies | Activity Therapy: Evaluation | Treat if indicated: PT, OT Rehabilitation Potential: Maximize functional status Activity: Activity as Tolerated Weight Bearing: Full Weight Assistance Devices: Walker Follow Up: See PCP after discharge from SNF."
--- NOTE | 2022-04-07 09:05 | DISCHARGE SUMMARY ---
Discharge Summary Admit Date: 04/04/22 Discharge Date: 04/07/22 Discharging Provider: Dr June Cardoza Primary Care Provider: Dr Bhupinder Davidson Code Status: Attempt Resuscitation Condition at Discharge: Stable Discharge Disposition: 03 SNF DC/Xfer - HPI History of Present Illness: This is a 71-year-old white male who has a history of alcohol abuse, this st arted in his 20s and he is attended rehabs then was sober for about 10 years and resumed drinking again in his 30s. 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 Patient was admitted here in 2019 for dehydration from alcohol abuse and vomiting and diarrhea. He was noted to have ataxia and Warnicke's encephalopathy. He was treated with high-dose IV thiamine for several days. He was discharged to a SNF. 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 The patient has not seen a provider since Covid started and he is not Covid vaccinated. He now lives alone, and says his mother is in a NH. He presents now after falling at home. He described that he has been dizzy for 3 to 4 days. He takes no medicines now. He drinks a box of wine a week, but says he last drank a few days ago. There has been no vomiting or diarrhea. He was walking from the bathroom and was dizzy and had syncope last night. He thinks he fell on the left side of his head. He guesses that he was on the ground an hour. He cannot remember getting up. This am he talked with a neighbor, who was concerned and called 911. By EMS, his initial BP was 70/50, and he got 500 cc of saline en route. In the ED he was still hypotensive with systolic blood pressure of 99. He was started on iv fluids which improved his blood pressure. Labs then returned and he was found to have a sodium of 116 and a creatinine of 2.5 (his usual creatinine is 1.0). The patient was started and on an IV banana bag. The ED provider reached out to me on the Hospitalist team and we discussed caring for this patient as an inpatient to manage hyponatremia, GERTRUDE and syncope. Patient's LFTs are mildly elevated. He has no measurable alcohol on his tox serum screen. His urine sodium is 20. He is Covid negative. - HOSPITAL COURSE Hospital Course: (1) Dehydration with hyponatremia He had hypovolemic hyponatremia. Na was 116 at admission and was 130 on day of discharge. (2) Syncope He described being dizzy for the previous few days, then had this unwitnessed fall at home. BP upon presentation to the ER was 99 systolic. With iv fluids, BP improved to 120-140 systolic. (3) Rhabdomyolysis CK was 2700 and improved after receiving iv NS, given for several days. (4) Acute kidney injury Resolved with iv hydration. (5) Hypokalemia Related to poor intake as well and was replaced. (6) Low back pain The patient states this is a chronic problem. We have prescribed Tylenol as needed, topical lidocaine patch daily, and Oxycodone prn. (7) Alcohol abuse He was on IV banana bag for several days. Now he is on oral thiamine. A CIWA protocol was ordered. He did not have sx of alcohol withdrawal. (8) Elevated LFTs His AST 190, ALT 102 at admission, likely from alcohol abuse. But he had normal bilirubin of 1.0 and INR was 1.0. (9) Abrasions of multiple sites He has multiple abrasions of the right side of his body. Topical care ordered. - ALLERGIES Allergies/Adverse Reactions: Allergies Allergy/AdvReac Type Severity Reaction Status Date / Time No Known Drug Allergies Allergy Verified 04/04/22 11:34 - MEDICATIONS Home Medications: Ambulatory Orders Medication Instructions Recorded Confirmed Acetaminophen [Tylenol] 650 mg PO Q4HR PRN #40 tab 04/07/22 Lidocaine Patch 5% [Lidoderm Patch] 1 patch TOP DAILY PRN #30 patch 04/07/22 Thiamine [Vitamin B-1] 100 mg PO DAILY #30 tab 04/07/22 oxyCODONE [Roxicodone] 5 mg PO Q6HR PRN #10 tab 04/07/22 - PHYSICAL EXAM AT DISCHARGE General Appearance: positive: No acute distress, Alert, Other (Disheveled, long hair and long brown) Eyes Bilateral: positive: Normal inspection, EOMI ENT: positive: No signs of dehydration, Other (edentulous) Neck: positive: Nml inspection, No JVD Respiratory: positive: No respiratory distress, Breath sounds nml Cardiovascular: positive: Regular rate & rhythm, No murmur Abdomen: positive: Non-tender, Nml bowel sounds, No distention Skin: positive: Warm, Dry Extremities: positive: Non-tender, No pedal edema Neurologic/Psychiatric: positive: Oriented x3, Motor nml, Sensation nml - LABS Result Diagrams: 04/05/22 05:11 04/07/22 05:07 - DIAGNOSTIC IMAGING Diagnostic Imaging Results: Final report reviewed - FOLLOW UP Follow Up: See PCP after discharge from SNF. - TIME SPENT Time Spent in Discharge (Minutes): 45
[2022-04-07 14:27] VITALS: BP 149/61
== END 2022-04-07 14:46 | DRG 683 ==
LOC: EDUNIT# → ED 11:19 → MS2 16:43
PROVIDERS: ADMIT Internal Medicine; ATTEND Internal Medicine
DX: N17.9 Acute kidney failure, unspecified (principal); E87.1 Hypo-osmolality and hyponatremia; I95.89 Other hypotension; M62.82 Rhabdomyolysis; R55 Syncope and collapse; F10.10 Alcohol abuse, uncomplicated; R42 Dizziness and giddiness; R40.4 Transient alteration of awareness; I95.9 Hypotension, unspecified; R53.1 Weakness; R77.8 Other specified abnormalities of plasma proteins; R94.31 Abnormal electrocardiogram [ECG] [EKG]; Z20.822 Contact with and (suspected) exposure to COVID-19; Z86.73 Personal history of transient ischemic attack (TIA), and cerebral infarction without residual deficits; R79.89 Other specified abnormal findings of blood chemistry; E86.0 Dehydration; E87.6 Hypokalemia; M54.50 Low back pain, unspecified; W19.XXXA Unspecified fall, initial encounter; G40.909 Epilepsy, unspecified, not intractable, without status epilepticus; S40.811A Abrasion of right upper arm, initial encounter; S50.311A Abrasion of right elbow, initial encounter; S70.311A Abrasion, right thigh, initial encounter; S80.811A Abrasion, right lower leg, initial encounter; S90.811A Abrasion, right foot, initial encounter; R73.9 Hyperglycemia, unspecified; Z28.310 Unvaccinated for COVID-19; Z91.81 History of falling
CPT/HCPCS: 36415; 51701; 70450; 80048; 80053; 81001; 82550; 83036; 83690; 83735; 84295; 84300; 84484; 85025; 85610; 87633; 93005; 93306; 96365; 96366; 96367; 97116; 97162; 97166; 99285; A9270; G0480; J3411; 80320; 81003; 87086